=== PATIENT | male | born 1980 | race Caucasian/White ===

== ENCOUNTER 2021-12-20 16:30 | Emergency (ER) | payer OTHER, SELFPAY ==
[2021-12-20 16:42] VITALS: BP 140/108; PULSE 106; RESP 18; TEMP 36.7; O2SAT 96
--- NOTE | 2021-12-20 16:45 | PC.NURSE ---
1:[address]
--- NOTE | 2021-12-20 16:54 | HMH.EDPSYCH ---
ED Disposition Condition on Discharge: Fair - Critical Care Critical Care Time: No <Leobardo Russell - Last Filed: 12/20/21 20:04> <Elie Solo - Last Filed: 12/21/21 04:34> Clinical Impression: Suicidal ideation Disposition: Xfer [facility] Referrals: Provider,Referral, [Primary Care Provider] - Attestation: On 12/20/21, the high probability of a clinically significant, sudden or life threatening deterioration of the following system(s) required my full and direct attention, intervention and personal management. The time I documented below is in addition to time spent performing reported procedures but includes the following listed in this critical care notation. Medical Decision Making - Medical Records Medical records reviewed: Yes: I reviewed the patient's medical records. - Janes Inquiry Pt receiving controlled substance: No - Lab Data Result diagrams: 12/20/21 17:17 12/20/21 17:17 - Reevaluation(s) Time: 20:01 (Discussed with [facility] for transfer and they request EtOH <80 before evaluation. By typical clearance rate, expect this will be around 0400. Will sign over to material handler 1st shift physician. ) <Leobardo Russell - Last Filed: 12/20/21 20:04> - Lab Data Result diagrams: 12/20/21 17:17 12/20/21 17:17 <Elie Solo - Last Filed: 12/21/21 04:34> Vital Signs: 12/20/21 16:42 12/20/21 17:30 12/20/21 18:30 Temperature 98.1 F Temperature Source Oral Pulse Rate 83 89 Pulse Rate [Left Radial] 106 H Respiratory Rate 18 16 16 Blood Pressure 135/94 H 138/92 H Blood Pressure [Right Arm] 140/108 H Blood Pressure Mean 105 Blood Pressure Mean [Right Arm] 118 02 Sat by Pulse Oximetry 96 97 96 Oxygen Delivery Method Room Air Room Air 12/20/21 23:30 12/21/21 00:00 12/21/21 00:30 Temperature Temperature Source Pulse Rate 79 78 80 Pulse Rate [Left Radial] Respiratory Rate Blood Pressure 132/87 134/94 H 128/90 Blood Pressure [Right Arm] Blood Pressure Mean 98 Blood Pressure Mean [Right Arm] 02 Sat by Pulse Oximetry 97 97 95 Oxygen Delivery Method Room Air Room Air Room Air 12/21/21 01:00 12/21/21 01:30 12/21/21 02:00 Temperature Temperature Source Pulse Rate 71 94 H 76 Pulse Rate [Left Radial] Respiratory Rate Blood Pressure 132/94 H 130/94 H 125/84 Blood Pressure [Right Arm] Blood Pressure Mean Blood Pressure Mean [Right Arm] 02 Sat by Pulse Oximetry 95 95 94 L Oxygen Delivery Method Room Air Room Air Room Air 12/21/21 02:30 12/21/21 03:00 12/21/21 03:30 Temperature Temperature Source Pulse Rate 85 75 78 Pulse Rate [Left Radial] Respiratory Rate 17 18 Blood Pressure 136/97 H 129/89 129/87 Blood Pressure [Right Arm] Blood Pressure Mean 100 95 Blood Pressure Mean [Right Arm] 02 Sat by Pulse Oximetry 96 95 95 Oxygen Delivery Method Room Air Room Air Room Air - Lab Data Lab Results 12/20/21 16:52: SARS-CoV-2 (PCR) Not detected, Influenza A Untype (PCR) Not detected, Influenza Type B (PCR) Not detected 12/20/21 17:17: WBC 5.3, RBC 4.84, Hgb 16.0, Hct 49.3, MCV 101.8 H, MCH 33.1 H, MCHC 32.5, RDW 13.7, Plt Count 312, MPV 7.5, Neut % (Auto) 43.8, Lymph % (Auto) 44.3, Lucas % (Auto) 6.4, Eos % (Auto) 3.7, Baso % (Auto) 1.8, Neut # (Auto) 2.3, Lymph # (Auto) 2.4, [place] # (Auto) 0.3, Eos # (Auto) 0.2, Baso # (Auto) 0.1 12/20/21 17:17: Sodium 146 H, Potassium 4.0, Chloride 111 H, Carbon Dioxide 23, Anion Gap 16.0 H, BUN 4 L, Creatinine 0.80, Estimated Creat Clear 122, Estimated GFR 106, Est GFR ( Amer) 128, Glucose 111 H, Calcium 9.2, Total Bilirubin 0.3, AST 39, ALT 22, Alkaline Phosphatase 73, Total Protein 8.2, Albumin 5.0, Globulin 3.2, Albumin/Globulin Ratio 1.6, TSH 1.06, Salicylates < 1.0 L, Acetaminophen < 10 L 07/14/22 17:17: Plasma/Serum Alcohol 316 H 12/20/21 18:51: Urine Opiates Screen Negative, Urine Methadone Screen Negative, Ur Barbituates Screen Negative, Ur Phencyclidine
--- NOTE | 2021-12-20 17:15 | ECG_ITS ---
APPROVED REPORT Exam: Resting ECG HR:80 bpm ECG Measurements Heart Rate 80 AXES [place] 149 P 81 QRSd 97 QRS 83 QT 344 T 70 QTc 380 Conclusion SINUS RHYTHM WITH SINUS ARRHYTHMIA NORMAL ECG UNCONFIRMED REPORT Electronically signed by : Brain Daniel MD 12/23/2021 16:29:51
--- NOTE | 2021-12-20 17:21 | PC.NURSE ---
PD remains at the bedside. spoke to [facility], states they can not take the patient unless alcohol is 0.08 or below. blood and covid swab obtained and sent to the lab. urinal at the bedside for sample. pt states he will provide a sample when he can
[2021-12-20 17:24] LABS: Coronavirus 19, PCR Not Detected (NotDetected); Influenza A, PCR Not Detected (NotDetected); Influenza B, PCR Not Detected (NotDetected)
[2021-12-20 17:28] LABS: Basophils # 0.1 K/mm3 (0-0.2); Basophils % 1.8 % (0.1-2.0); Eosinophils # 0.2 K/mm3 (0.0-0.4); Eosinophils % 3.7 % (0.1-12.0); Hematocrit 49.3 % (42.0-52.0); Lymphocytes # 2.4 K/mm3 (0.7-4.5); Lymphocytes % 44.3 % (10-50); Mean Corpuscular HGB Conc 32.5 g/dL (31.8-35.4); Mean Corpuscular Hemoglobin 33.1 pg (27.0-31.2); Mean Corpuscular Volume 101.8 fl (80-94); Mean Platelet Volume 7.5 fl (7.4-10.4); Monocytes # 0.3 K/mm3 (0.1-1.0); Monocytes % 6.4 % (1.7-9.3); Neutrophils # 2.3 K/mm3 (1.8-7.8); Neutrophils % 43.8 % (37.0-80.0); Platelet Count 312 K/mm3 (142-424); Red Blood Count 4.84 M/mm3 (4.60-6.20); Red Cell Distribution Width 13.7 % (11.5-17.5); White Blood Count 5.3 K/mm3 (4.8-10.8)
[2021-12-20 17:30] VITALS: BP 135/94; PULSE 83; RESP 16; O2SAT 97
[2021-12-20 17:31] LABS: Chloride 111 mmol/L (98-107)
[2021-12-20 17:32] LABS: Sodium 146 mmol/L (136-145)
[2021-12-20 17:34] LABS: Alanine Aminotransferase 22 U/L (12-78); Alkaline Phosphatase 73 U/L (38-126); Aspartate Amino Transferase 39 U/L (17-59); Bilirubin,Total 0.3 mg/dl (0.2-1.3); Blood Urea Nitrogen 4 mg/dl (9-20); Creatinine Clearance Estimated 122 mL/min (50-200); Estimated Glomerular Filt Rate 106 ml/min (>60); GFR (African American) 128 ML/MIN (>60)
[2021-12-20 17:35] LABS: Albumin/Globulin Ratio 1.6 (1.1-1.8); Carbon Dioxide 23 mmol/L (22.0-30.0); Globulin 3.2 g/dL (1.3-3.2); Total Protein,Serum 8.2 g/dl (6.3-8.2)
[2021-12-20 17:40] LABS: Calcium 9.2 mg/dl (8.4-10.2); Glucose 111 mg/dl (74-100)
[2021-12-20 17:43] LABS: Acetaminophen < 10 ug/ml (10-30); Salicylate < 1.0 mg/dL (2.0-20.0)
[2021-12-20 17:44] LABS: Ethyl Alcohol 316 mg/dl (0-10)
--- NOTE | 2021-12-20 17:55 | PC.NURSE ---
spoke with the girlfriend of the pt and with pt permission, updated on POC.
[2021-12-20 18:06] LABS: Thyroid Stimulating Hormone 1.06 uIU/mL (0.465-4.68)
--- NOTE | 2021-12-20 18:28 | PC.NURSE ---
police custody everything was ok
[2021-12-20 18:30] VITALS: BP 138/92; PULSE 89; RESP 16; O2SAT 96
--- NOTE | 2021-12-20 18:47 | PC.NURSE ---
pt resting comfortably. pd remains at bedside. ordered and offered dinner tray. pt does not want to eat. tray at the bedside.
--- NOTE | 2021-12-20 18:53 | PC.NURSE ---
pt provided urine sample at this time
[2021-12-20 19:10] LABS: Barbiturates Screen,Urine Negative ng/ml (<200); Benzodiazepines Screen,Urine Negative ng/ml (<200)
[2021-12-20 19:11] LABS: Amphetamine/Metha Screen,Urine Negative ng/ml (<1000)
[2021-12-20 19:12] LABS: Cannabinoid Screen,Urine Positive ng/ml (<50); Methadone Screen,Urine Negative ng/ml (<300)
[2021-12-20 19:13] LABS: Cocaine Screen,Urine Negative ng/ml (<300)
[2021-12-20 19:14] LABS: Opiate Screen,Urine Negative ng/ml (<300); Phencyclidine Screen,Urine Negative ng/ml (<25)
--- NOTE | 2021-12-20 20:52 | PC.NURSE ---
PATIENT SITTING UP ON SIDE OF BED TALKING WITH PSYCH ASSISTANT. NO NEEDS VOICED AT THIS TIME.
--- NOTE | 2021-12-20 21:35 | PC.NURSE ---
pt's SO called for an update, gave update on pts condition.
--- NOTE | 2021-12-20 21:39 | PC.NURSE ---
PATIENT IS LYING IN BED WITH EYES CLOSED. WARM BLANKET APPLIED. NO NEEDS VOICED.
[2021-12-20 22:55] LABS: Ethyl Alcohol 228 mg/dl (0-10)
--- NOTE | 2021-12-20 23:25 | PC.NURSE ---
PATIENT ALLOWING BP TO BE TAKEN. PATIENT RESTING IN BED. NO COMPLAINTS VOICED. PATIENT BEING COOPERATIVE AT THIS TIME.
[2021-12-20 23:30] VITALS: BP 132/87; PULSE 79; O2SAT 97
[2021-12-21] VITALS (10 sets, daily range): BP systolic 125–136; BP diastolic 75–97; PULSE 70–94; RESP 17–18; TEMP 36.7; O2SAT 94–98
--- NOTE | 2021-12-21 01:00 | PC.NURSE ---
drawing lab for repeat Alcohol level at this time. Pt resting in bed. He has ate some from crackers and drinking ugo mist. Denies any pain at this time.
[2021-12-21 01:27] LABS: Ethyl Alcohol 153 mg/dl (0-10)
--- NOTE | 2021-12-21 03:05 | PC.NURSE ---
PD changing officers at this time.
--- NOTE | 2021-12-21 03:44 | PC.NURSE ---
pt's SO called, given update on POC and labs.
[2021-12-21 04:08] LABS: Ethyl Alcohol 97 mg/dl (0-10)
== END 2021-12-21 04:45 ==
PROVIDERS: Emergency Provider Emergency Medicine
DX: R45.851 Suicidal ideations (principal); Z72.89 Other problems related to lifestyle
CPT/HCPCS: 80053; 80305; 80329; 84443; 85025; 93005; 99283; C9803; U0003; U0005

== ENCOUNTER 2023-08-05 19:24 | Emergency (ER) | payer OTHER, SELFPAY ==
[2023-08-05 19:24] VITALS: BP 120/89; PULSE 108; RESP 18; TEMP 37.1; O2SAT 98; BMI 21.9
--- NOTE | 2023-08-05 19:26 | ECG_ITS ---
APPROVED REPORT Exam: Resting ECG HR:73 bpm ECG Measurements Heart Rate 73 AXES [place] 127 P 86 QRSd 93 QRS 93 QT 342 T 71 QTc 368 Conclusion SINUS RHYTHM WITH SINUS ARRHYTHMIA BORDERLINE RIGHT AXIS DEVIATION [QRS AXIS > 90] BORDERLINE ECG UNCONFIRMED REPORT Electronically signed by : Brain Daniel MD 08/06/2023 10:05:05
--- NOTE | 2023-08-05 19:27 | HMH.EDCP ---
Discharge Plan Disposition Patient Disposition: Home, Self-Care Condition: Good Prescriptions Prescriptions: New albuterol sulfate 90 mcg/actuation HFA aerosol inhaler 2 inh inhalation Q4H PRN (Reason: shortness of breath or wheezing) Qty: 8.5 0RF Referrals Follow up/Referrals: Christian Pendleton DO [Staff Physician] - See instructions Provider,MD Carlos [Primary Care Provider] - See instructions Ian Ospina MD [Staff Physician] - See instructions Activity Restrictions/Add. Instructions Additional Instructions/Restrictions: Please continue to treat your symptoms with Tylenol and Motrin alternating every 4 hours. I have made a referral for you for primary care and cardiology. Please call in the morning and make a initial appointment. Please return to the emergency department for any worsening or new symptoms or as needed. Clinical Impressions Clinical Impression: Influenza A Chest pain Qualifiers: Chest pain type: unspecified Qualified Code(s): R07.9 - Chest pain, unspecified Stand Alone Forms Stand Alone Forms: Work/School Release Discharge ED Provider: Debora Tipton HPI <DAPHNIE De Jesus - Last Filed: 08/05/23 22:05> General Chief Complaint: Chest Pain Stated Complaint: chest pain Time Seen by Provider: 08/05/23 19:27 History of Present Illness HPI narrative: Patient presents with reports of subjective fever, nausea dry nonproductive cough and nonradiating left-sided chest pain. Patient has past medical history of former alcohol abuse but has been sober for quite some time. Patient also reports that he has a son that was diagnosed with Marfan's and had heart surgery at but has never been worked up for Marfan's himself. Patient currently denies chills hemoptysis hematochezia melena hematemesis hematuria. Related Data Previous Rx's Medication Instructions Recorded albuterol sulfate 90 mcg/actuation 2 inh inhalation Q4H PRN shortness 08/05/23 aerosol inhaler of breath or wheezing #8.5 grams Allergies Allergy/AdvReac Type Severity Reaction Status Date / Time No Known Allergies Allergy Verified 12/20/21 17:12 [facility] <DAPHNIE De Jesus - Last Filed: 08/05/23 22:05> [facility] Disclaimer: The information contained in this section may have been updated after the patient was seen, as this information can be updated by other users. Social History (Updated 08/05/23 @ 22:05 by DAPHNIE De Jesus) Smoking Status: Never smoker alcohol intake: former current occupational status: employed Travel in the last 8 weeks: None <DAPHNIE De Jesus - Last Filed: 08/05/23 22:05> ROS Obtained: Yes Systems reviewed as appropriate & no additional complaints except as documented Physical Exam <DAPHNIE De Jesus - Last Filed: 08/05/23 22:05> Narrative Physical exam: Patient is a tall thin well-nourished well-developed 43-year-old gentleman who otherwise is in no acute distress General General appearance: alert and in no apparent distress Head Head exam: atraumatic and normal inspection Eye Eye exam: Present normal appearance, PERRL and EOMI ENT ENT exam: Present normal exam, normal oropharynx, mucous membranes moist and other (No exudate) Neck Neck exam: Present normal inspection, full ROM and trachea midline; Absent lymphadenopathy Chest Chest inspection: Present normal inspection and symmetric chest wall rise; Absent tenderness (To palpation or deep breath) Respiratory Respiratory exam: Present normal lung sounds bilaterally; Absent respiratory distress, wheezes or accessory muscle use Cardiovascular Cardiovascular exam: Present regular rate, tachycardia, normal heart sounds, +S1 and +S2; Absent systolic murmur, diastolic murmur, rubs or gallop Abdominal Exam Abdominal exam: Present soft and normal bowel sounds; Absent tenderness, guarding or rebound Extremities Exam Extremities exam: Present normal inspection and full ROM Back Exam Back exam: Present normal inspection and full ROM; Absent tenderness Neurological Exam Neurological exam: Present alert and oriented X3 Psychiatric Psychiatric exam: Present normal affect and normal mood Skin Skin exam: Present warm, dry and normal color HEART Score <DAPHNIE De Jesus - Last Filed: 08/05/23 22:05> HEART Score HEART Score assessment performed?: Yes History (anamnesis): Slightly suspicious ECG: Normal Age: 45-65 years Risk factors: 1-2 risk factors Troponin: </= normal limit HEART Score: 2 <Debora Tipton DO - Last Filed: 08/05/23 22:57> HEART Score HEART Score: 2 Critical Care <DAPHNIE De Jesus - Last Filed: 08/05/23 22:05> Critical Care Time Critical Care Time: Yes Attestation: On 08/05/23, the high probability of a clinically significant, sudden or life threatening deterioration of the following system(s) required my full and direct attention, intervention and personal management: Cardiac and pulmonary. The time I documented below is in addition to time spent performing reported procedures but includes the following listed in this critical care notation. Total Time Total Critical Care Time: 30 Medical Decision Making <DAPHNIE De Jesus - Last Filed: 08/05/23 22:05> Medical Records Medical records reviewed: Yes I reviewed the patient's medical records. Janes Inquiry Pt receiving controlled substance: No Vital Signs Vital Signs: 08/05/23 19:24 08/05/23 20:00 08/05/23 20:30 Temperature 98.7 F Temperature Source Oral Pulse Rate 106 H 73 Pulse Rate [Right Brachial] 108 H Respiratory Rate 18 Blood Pressure 105/81 L 110/72 Blood Pressure [Right Arm] 120/89 Blood Pressure Mean [Right Arm] 99 Blood Pressure Source [Right Arm] Automatic Cuff Blood Pressure Position [Right Arm] Supine 02 Sat by Pulse Oximetry 98 96 95 Oxygen Delivery Method Room Air 08/05/23 21:00 08/05/23 22:12 Temperature 98.4 F Temperature Source Oral Pulse Rate 104 H 82 Pulse Rate [Right Brachial] Respiratory Rate 16 Blood Pressure 97/74 L 96/62 L Blood Pressure [Right Arm] Blood Pressure Mean [Right Arm] Blood Pressure Source [Right Arm] Blood Pressure Position [Right Arm] 02 Sat by Pulse Oximetry 96 Oxygen Delivery Method Room Air Lab Data Lab results reviewed: Yes I reviewed the patient's lab results. Labs: Lab Results 08/05/23 19:26: WBC 3.8 L, RBC 4.31 L, Hgb 13.6 L, Hct 41.1 L, MCV 95.5 H, MCH 31.5 H, MCHC 33.0, RDW 12.8, Plt Count 158, MPV 8.7, Neut % (Auto) 50.9, Lymph % (Auto) 38.5, [place] % (Auto) 9.3, Eos % (Auto) 0.9, Baso % (Auto) 0.3, Neut # (Auto) 1.9, Lymph # (Auto) 1.5, [place] # (Auto) 0.4, Eos # (Auto) 0.0, Baso # (Auto) 0.0, Sodium 140, Potassium 4.0, Chloride 108 H, Carbon Dioxide 22, Anion Gap 14.0, BUN 11, Creatinine 1.00, Estimated Creat Clear 105, Estimated GFR 81, Est GFR ( Amer) 98, Glucose 97, Lactate 1.0, Calcium 8.9, Total Bilirubin 0.3, AST 37, ALT 31, Alkaline Phosphatase 68, Troponin I < 0.01, Total Protein 7.1, Albumin 4.2, Globulin 2.9, Albumin/Globulin Ratio 1.4, SARS-CoV-2 (PCR) Not detected, Influenza A Untype (PCR) Detected A, Influenza Type B (PCR) Not detected 08/05/23 19:26 08/05/23 19:26 Response Orders (Tests/Meds): ED MEDICATIONS Discontinued Medications Generic Name Dose Route Start Last Admin Trade Name Freq PRN Reason Stop Dose Admin Acetaminophen 1,000 mg 08/05/23 20:15 08/05/23 20:19 Acetaminophen 500mg Tab PO 08/05/23 20:16 1,000 mg ONCE ONE Administration Albuterol/Ipratropium 3 ml 08/05/23 20:26 08/05/23 20:42 Ipratropium/Albuterol 3 Ml Neb IH 08/05/23 20:27 3 ml ONCE ONE Administration Belladonna Alkaloids 60 ml 08/05/23 20:15 08/05/23 20:19 Belladonna Alkaloids 60 Ml Ml PO 08/05/23 20:16 60 ml ONCE ONE Administration Dexamethasone Sodium Phosphate 4 mg 08/05/23 20:26 08/05/23 20:51 Dexamethasone 4mg/Ml 1ml Vial IV 08/05/23 20:27 4 mg ONCE ONE Administration Lactated Ringer's 1,000 mls @ 999 mls/hr 08/05/23 21:42 08/05/23 21:48 Lactated Ringer's 1000 Ml Bag IV 08/05/23 22:42 999 mls/hr .Q1H1M ONE Administration Ketorolac Tromethamine 15 mg 08/05/23 20:15 08/05/23 20:19 Ketorolac 30mg/Ml Vial IV 08/05/23 20:16 15 mg ONCE ONE Administration ORDERS Category Date Time Status XR chest portable Stat Exams 08/05/23 20:14 Completed Complete Blood Count Auto Diff Stat Lab 08/05/23 19:26 Completed Comprehensive Metabolic Panel Stat Lab 08/05/23 19:26 Completed Lactic Acid Stat Lab 08/05/23 19:26 Completed Rapid PCR Covid and Flu A/B Stat Lab 08/05/23 19:26 Completed Troponin I Stat Lab 08/05/23 19:26 Completed MDM Narrative Medical Decision Narrative: In summary patient is a 43-year-old male who presents to the emergency department for evaluation of cough fever chest pain. Patient is initially normotensive with stable vital signs upon arrival, and afebrile. Physical exam shows a nontoxic 43-year-old male who appears to be unwell slightly diaphoretic. Chest pain is nonspecific and does not radiate. Breath sounds are equal bilaterally with no adventitious sounds.. Differential diagnosis includes ACS versus PE versus viral or bacterial pneumonia versus dissection. Initial workup will be conducted with hematologic labs plain film chest x-ray respiratory swabs. Initial interventions include crystalloid bolus Tylenol Toradol DuoNeb Decadron. Initial workup reviewed by me shows a normal white count with no left shift, patient is positive for influenza A. Initial troponin is negative. EKG shows sinus tachycardia. Informal interpretation of his plain film chest x-ray shows no acute disease. Upon repeat evaluation has had complete resolution of his constitutional symptoms including his chest pain after administration of DuoNeb Decadron Tylenol and Toradol. Given this she is appropriate for discharge at this time with recommendations and referrals for primary care. Patient advised to return to the ER for any worsening symptoms or as needed. Discharge and decision making patient verbalized understanding and agreement with the plan. <Debora Tipton, DO - Last Filed: 08/05/23 22:57> Vital Signs Vital Signs: 08/05/23 19:24 08/05/23 20:00 08/05/23 20:30 Temperature 98.7 F Temperature Source Oral Pulse Rate 106 H 73 Pulse Rate [Right Brachial] 108 H Respiratory Rate 18 Blood Pressure 105/81 L 110/72 Blood Pressure [Right Arm] 120/89 Blood Pressure Mean [Right Arm] 99 Blood Pressure Source [Right Arm] Automatic Cuff Blood Pressure Position [Right Arm] Supine 02 Sat by Pulse Oximetry 98 96 95 Oxygen Delivery Method Room Air 08/05/23 21:00 08/05/23 22:12 Temperature 98.4 F Temperature Source Oral Pulse Rate 104 H 82 Pulse Rate [Right Brachial] Respiratory Rate 16 Blood Pressure 97/74 L 96/62 L Blood Pressure [Right Arm] Blood Pressure Mean [Right Arm] Blood Pressure Source [Right Arm] Blood Pressure Position [Right Arm] 02 Sat by Pulse Oximetry 96 Oxygen Delivery Method Room Air Lab Data Labs: Lab Results 08/05/23 19:26: WBC 3.8 L, RBC 4.31 L, Hgb 13.6 L, Hct 41.1 L, MCV 95.5 H, MCH 31.5 H, MCHC 33.0, RDW 12.8, Plt Count 158, MPV 8.7, Neut % (Auto) 50.9, Lymph % (Auto) 38.5, [place] % (Auto) 9.3, Eos % (Auto) 0.9, Baso % (Auto) 0.3, Neut # (Auto) 1.9, Lymph # (Auto) 1.5, [place] # (Auto) 0.4, Eos # (Auto) 0.0, Baso # (Auto) 0.0, Sodium 140, Potassium 4.0, Chloride 108 H, Carbon Dioxide 22, Anion Gap 14.0, BUN 11, Creatinine 1.00, Estimated Creat Clear 105, Estimated GFR 81, Est GFR ( Amer) 98, Glucose 97, Lactate 1.0, Calcium 8.9, Total Bilirubin 0.3, AST 37, ALT 31, Alkaline Phosphatase 68, Troponin I < 0.01, Total Protein 7.1, Albumin 4.2, Globulin 2.9, Albumin/Globulin Ratio 1.4, SARS-CoV-2 (PCR) Not detected, Influenza A Untype (PCR) Detected A, Influenza Type B (PCR) Not detected Response Orders (Tests/Meds): ED MEDICATIONS Discontinued Medications Generic Name Dose Route Start Last Admin Trade Name Freq PRN Reason Stop Dose Admin Acetaminophen 1,000 mg 08/05/23 20:15 08/05/23 20:19 Acetaminophen 500mg Tab PO 08/05/23 20:16 1,000 mg ONCE ONE Administration Albuterol/Ipratropium 3 ml 08/05/23 20:26 08/05/23 20:42 Ipratropium/Albuterol 3 Ml Neb IH 08/05/23 20:27 3 ml ONCE ONE Administration Belladonna Alkaloids 60 ml 08/05/23 20:15 08/05/23 20:19 Belladonna Alkaloids 60 Ml Ml PO 08/05/23 20:16 60 ml ONCE ONE Administration Dexamethasone Sodium Phosphate 4 mg 08/05/23 20:26 08/05/23 20:51 Dexamethasone 4mg/Ml 1ml Vial IV 08/05/23 20:27 4 mg ONCE ONE Administration Lactated Ringer's 1,000 mls @ 999 mls/hr 08/05/23 21:42 08/05/23 21:48 Lactated Ringer's 1000 Ml Bag IV 08/05/23 22:42 999 mls/hr .Q1H1M ONE Administration Ketorolac Tromethamine 15 mg 08/05/23 20:15 08/05/23 20:19 Ketorolac 30mg/Ml Vial IV 08/05/23 20:16 15 mg ONCE ONE Administration ORDERS Category Date Time Status XR chest portable Stat Exams 08/05/23 20:14 Completed Complete Blood Count Auto Diff Stat Lab 08/05/23 19:26 Completed Comprehensive Metabolic Panel Stat Lab 08/05/23 19:26 Completed Lactic Acid Stat Lab 08/05/23 19:26 Completed Rapid PCR Covid and Flu A/B Stat Lab 08/05/23 19:26 Completed Troponin I Stat Lab 08/05/23 19:26 Completed ECG Data Tracing #1: Attestation: I reviewed this ECG and interpreted as documented below: ECG Narrative: Normal sinus rhythm with a ventricular rate of [address] changes concerning for ischemia. Normal axis and intervals. ECG initial impression date: 08/05/23 ECG initial impression time: 19:27 MDM Narrative Medical Decision Narrative: In summary patient is a 43-year-old male who presents to the emergency department for evaluation of cough fever chest pain. Patient is initially normotensive with stable vital signs upon arrival, and afebrile. Physical exam shows a nontoxic 43-year-old male who appears to be unwell slightly diaphoretic. Chest pain is nonspecific and does not radiate. Breath sounds are equal bilaterally with no adventitious sounds.. Differential diagnosis includes ACS versus PE versus viral or bacterial pneumonia versus dissection. Initial workup will be conducted with hematologic labs plain film chest x-ray respiratory swabs. Initial interventions include crystalloid bolus Tylenol Toradol DuoNeb Decadron. Initial workup reviewed by me shows a normal white count with no left shift, patient is positive for influenza A. Initial troponin is negative. EKG shows sinus tachycardia. Informal interpretation of his plain film chest x-ray shows no acute disease. Upon repeat evaluation has had complete resolution of his constitutional symptoms including his chest pain after administration of DuoNeb Decadron Tylenol and Toradol. Given this she is appropriate for discharge at this time with recommendations and referrals for primary care. Patient advised to return to the ER for any worsening symptoms or as needed. Discharge and decision making patient verbalized understanding and agreement with the plan. I was consulted by the NARCISO, and we discussed the complexity of the problems being addressed. I approved the treatment and management plan for this patient's care in the emergency department, thus performing a substantive portion of the medical decision making. Debora Tipton, DO
[2023-08-05 20:00] VITALS: BP 105/81; PULSE 106; O2SAT 96
--- NOTE | 2023-08-05 20:14 | XR_ITS ---
PROCEDURE INFORMATION: Exam: XR Chest Exam date and time: 08/05/2023 8:16 PM Age: 43 years old Clinical indication: Pain; Chest pressure; Additional info: Chest pain TECHNIQUE: Imaging protocol: Radiologic exam of the chest. Views: 1 view. COMPARISON: No relevant prior studies available. FINDINGS: Lungs: Unremarkable. No consolidation. Pleural spaces: Unremarkable. No pleural effusion. No pneumothorax. Heart/Mediastinum: Unremarkable. No cardiomegaly. Bones/joints: Unremarkable. IMPRESSION: No acute findings.
[2023-08-05] MEDS: BELLADONNA ALKALOIDS 60 ML ML PO (20:19)
[2023-08-05] MEDS: ACETAMINOPHEN 500MG TAB 1000 MG PO (20:19)
[2023-08-05] MEDS: KETOROLAC 30MG/ML VIAL 15 MG IV (20:19)
[2023-08-05 20:24] LABS: Basophils % 0.3 % (0.1-2.0); Eosinophils % 0.9 % (0.1-12.0); Hematocrit 41.1 % (42.0-52.0); Hemoglobin 13.6 g/dL (14.1-18.0); Lymphocytes # 1.5 K/mm3 (0.7-4.5); Lymphocytes % 38.5 % (10-50); Mean Corpuscular Hemoglobin 31.5 pg (27.0-31.2); Mean Corpuscular Volume 95.5 fl (80-94); Mean Platelet Volume 8.7 fl (7.4-10.4); Monocytes # 0.4 K/mm3 (0.1-1.0); Monocytes % 9.3 % (1.7-9.3); Neutrophils # 1.9 K/mm3 (1.8-7.8); Neutrophils % 50.9 % (37.0-80.0); Platelet Count 158 K/mm3 (142-424); Red Blood Count 4.31 M/mm3 (4.60-6.20); Red Cell Distribution Width 12.8 % (11.5-17.5); White Blood Count 3.8 K/mm3 (4.8-10.8)
[2023-08-05 20:30] VITALS: BP 110/72; PULSE 73; O2SAT 95
[2023-08-05 20:30] LABS: Alanine Aminotransferase 31 U/L (12-78); Albumin Level 4.2 g/dl (3.5-5.0); Albumin/Globulin Ratio 1.4 (1.1-1.8); Alkaline Phosphatase 68 U/L (38-126); Aspartate Amino Transferase 37 U/L (17-59); Bilirubin,Total 0.3 mg/dl (0.2-1.3); Blood Urea Nitrogen 11 mg/dl (9-20); Calcium 8.9 mg/dl (8.4-10.2); Carbon Dioxide 22 mmol/L (22.0-30.0); Chloride 108 mmol/L (98-107); Creatinine Clearance Estimated 105 mL/min (50-200); Estimated Glomerular Filt Rate 81 ml/min (>60); GFR (African American) 98 ML/MIN (>60); Globulin 2.9 g/dL (1.3-3.2); Glucose 97 mg/dl (74-100); Sodium 140 mmol/L (136-145); Total Protein,Serum 7.1 g/dl (6.3-8.2)
[2023-08-05 20:33] LABS: Coronavirus 19, PCR Not Detected (NotDetected); Influenza B, PCR Not Detected (NotDetected)
[2023-08-05 20:42] LABS: Troponin I < 0.01 ng/ml (0.00-0.034)
[2023-08-05] MEDS: IPRATROPIUM/ALBUTEROL 3 ML NEB IH (20:42)
[2023-08-05] MEDS: DEXAMETHASONE 4MG/ML 1ML VIAL 4 MG IV (20:51)
[2023-08-05 21:00] VITALS: BP 97/74; PULSE 104; O2SAT 96
[2023-08-05 21:35] LABS: Influenza A, PCR Detected (NotDetected)
[2023-08-05] MEDS: LACTATED RINGERS 1000ML 1,000 ML 999 ML IV (21:48)
[2023-08-05 22:12] VITALS: BP 96/62; PULSE 82; RESP 16; TEMP 36.9; O2SAT 96
== END 2023-08-05 22:28 | disposition home or self-care (01) ==
PROVIDERS: Physician Assistant; Emergency Provider Emergency Medicine
DX: J10.1 Influenza due to other identified influenza virus with other respiratory manifestations (principal); R07.9 Chest pain, unspecified; R05.9 Cough, unspecified; R00.0 Tachycardia, unspecified
CPT/HCPCS: 71045; 80053; 83605; 84484; 85025; 87636; 93005; 96361; 96374; 96375; 99285

== ENCOUNTER 2023-08-18 14:34 | Outpatient (CLI) | payer OTHER, SELFPAY ==
[2023-08-18 15:27] LABS: Basophils # 0.1 K/mm3 (0-0.2); Basophils % 0.6 % (0.1-2.0); Eosinophils # 0.2 K/mm3 (0.0-0.4); Eosinophils % 2.3 % (0.1-12.0); Hematocrit 40.2 % (42.0-52.0); Hemoglobin 13.5 g/dL (14.1-18.0); Lymphocytes # 1.4 K/mm3 (0.7-4.5); Lymphocytes % 15.1 % (10-50); Mean Corpuscular HGB Conc 33.6 g/dL (31.8-35.4); Mean Corpuscular Hemoglobin 31.9 pg (27.0-31.2); Mean Corpuscular Volume 94.9 fl (80-94); Mean Platelet Volume 8.5 fl (7.4-10.4); Monocytes # 0.5 K/mm3 (0.1-1.0); Monocytes % 5.4 % (1.7-9.3); Neutrophils # 6.9 K/mm3 (1.8-7.8); Neutrophils % 76.7 % (37.0-80.0); Platelet Count 251 K/mm3 (142-424); Red Blood Count 4.24 M/mm3 (4.60-6.20); Red Cell Distribution Width 13.1 % (11.5-17.5)
[2023-08-18 16:01] LABS: Alanine Aminotransferase 23 U/L (12-78); Albumin Level 4.3 g/dl (3.5-5.0); Alkaline Phosphatase 64 U/L (38-126); Anion Gap 10.1 mEq/L (5-15); Aspartate Amino Transferase 29 U/L (17-59); Bilirubin,Indirect 0.8 mg/dL (0.0-0.9); Bilirubin,Total 0.8 mg/dl (0.2-1.3); Bilirubin,Unconjugated 0.8 mg/dL (0.0-1.1); Blood Urea Nitrogen 16 mg/dl (9-20); Calcium 9.1 mg/dl (8.4-10.2); Carbon Dioxide 28 mmol/L (22.0-30.0); Chloride 107 mmol/L (98-107); Chol/HDL Ratio 3.4 (1-3.5); Cholesterol 151 mg/dl (140-200); Estimated Glomerular Filt Rate 91 ml/min (>60); GFR (African American) 110 ML/MIN (>60); Glucose 95 mg/dl (74-100); HDL Cholesterol 44 mg/dl (40-60); Magnesium 2.3 mg/dl (1.6-2.3); Potassium 4.1 mmoL/L (3.5-5.1); Sodium 141 mmol/L (136-145); Total Protein,Serum 6.6 g/dl (6.3-8.2); Triglycerides 40 mg/dl (30-150); VLDL Cholesterol 8 mg/dL (0-40)
[2023-08-18 16:12] LABS: Direct LDL Cholesterol 82.33 mg/dL (100-129)
[2023-08-18 16:19] LABS: Free T4 (Free Thyroxine) 1.27 ng/dl (0.78-2.19)
[2023-08-18 16:34] LABS: Thyroid Stimulating Hormone 0.64 uIU/mL (0.465-4.68)
== END 2023-08-18 23:59 ==
LOC: LAB 14:35
PROVIDERS: Visit Provider Nurse Practitioner Family
DX: R00.2 Palpitations (principal); R06.00 Dyspnea, unspecified; R94.31 Abnormal electrocardiogram [ECG] [EKG]; R07.9 Chest pain, unspecified; R42 Dizziness and giddiness; R53.83 Other fatigue; F41.9 Anxiety disorder, unspecified; F10.91 Alcohol use, unspecified, in remission; Z78.9 Other specified health status
CPT/HCPCS: 36415; 80048; 80061; 80076; 83735; 84439; 84443; 85025; 93270

== ENCOUNTER 2023-09-01 09:02 | Outpatient (CLI) | payer OTHER, SELFPAY ==
[2023-09-01] VITALS (8 sets, daily range): BP systolic 88–111; BP diastolic 49–80; PULSE 50–80; RESP 16–18; O2SAT 98–100; BMI 21.2
--- NOTE | 2023-09-01 09:03 | CT_ITS ---
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 A noncontrast coronary calcium scan was performed. A CT attenuation threshold of 130 Hounsfield units (HU) was used for the detection of calcium in contiguous voxels of 1 sq mm in area to be counted as individual lesions. Bolus tracking in the ascending aorta with a threshold of 180 HU was performed. Immediately afterwards, ECG synchronized cardiac CT was then performed from the cardiac base to apex using retrospective gating with ECG tube current modulation. A total of 85 mL of Isovue 370 mg/mL contrast medium was administered at 5 mL/sec followed by a saline flush using a biphasic injection protocol. A tube voltage of 120 KVp was used. The patient received the following medications prior to the cardiac CT. 75 mg of oral metoprolol 15 mg of oral ivabradine 0.4 mg of sublingual nitroglycerin The average heart rate at the time of acquisition was 54 bpm and regular. Image Reconstruction Transaxial images were reconstructed at 0.67 mm slide thickness. Data was reviewed interactively on an advanced workstation capable of 2 and 3-dimensional displays in all conventional reconstruction formats, including multiplanar reformations, maximum intensity projections, curved multiplanar reformations, and volume rendered reconstructions. When applicable, selected routine images describing the relevant coronary anatomy and pathology were saved and sent to PACS. Complications None Technical Quality Overall image quality was good. Coronary artery opacification was adequate. Total DLP (Dose-Length Product) is 2054.2 mGy-cm. The reported value represents the total of one or more individual components during the CT acquisition of this date and at this time, and as such, the same value may appear in more than one CT report depending on the interpreting/reporting physicians. COMPARISON None FINDINGS CT Coronary Calcium Scoring LMA (Left Main Artery) = 0 LAD (Left Anterior Descending) = 0 LCX (Left Coronary Circumflex) = 0 RCA (Right Coronary Artery) = 0 Total Calcium Score = 0 using the AJ-130 method. The interpretation of the calcium heart score is based on the following continuum*: 0 = no calcified plaque detected (risk of coronary artery disease is very low ??? less than 5%) 1-10 = calcium detected in extremely minimal levels (risk of coronary diseases is still low ??? less than 10%) 11-100 = mild levels of plaque detected with certainty (mild or minimal narrowing of heart arteries is likely) 101-400 = definite,at least moderate levels of plaque detected (relatively high risk of a heart attack within 3-5 years) >401-999 = extensive levels of plaque detected (high risk of heart attack, high levels of vascular disease are present, high likelihood of at least one significant coronary narrowing) *The calcium heart score quantifies the burden of coronary calcification/plaque in the coronary arteries. The calcium heart score is not able to evaluate the presence or burden of non-calcified (i.e. soft) plaque. There is no identifiable calcification in the aortic valve, mitral annulus or mitral valve, pericardium, or myocardium. Coronary CT Angiography The coronary arterial system is right dominant. Quantitative Stenosis Grading: Left Main (LM): The left main originates normally from the left sinus of Valsalva. The LM bifurcates into the left anterior descending artery and left circumflex artery. The LM is patent with no evidence of atherosclerosis. Left Anterior Descending (LAD) and Diagonal Branches: The LAD gives off 4 diagonal branches. The LAD and its branches are patent with no evidence of atherosclerosis. There is no evidence of LAD-myocardial bridge. Left Circumflex (LCX) and Obtuse Marginals (OM): The LCX gives off 1 Obtuse Marginal (OM) branch. The LCX and its branches are patent with no evidence of atherosclerosis. Right Coronary Artery (RCA): The RCA originates normally from the right sinus of Valsalva. The RCA gives off a posterior descending artery (PDA) and posterolateral (PL) branches. The RCA and its branches are patent with no evidence of atherosclerosis. Non-Coronary Cardiac Findings: Analysis of the left ventricular (LV) structure and function was performed after 3-D reconstruction of the LV from axial images, with user-corrected automatic contouring for assessment of LV volumes and user-defined reconstruction from oblique planes for measurement of 3-D cardiac structure and function. -The left ventricle systolic function is normal. -There is no left atrial appendage filling defect. Two right pulmonary veins and two left pulmonary veins drain normally into the left atrium. -No pericardial thickening or calcification. -Central and branch pulmonary arteries in the [id number] are unremarkable. -Thoracic aorta within the visualized thoracic aortic-branches in the [id number] is unremarkable. Extracardiac Structures No significant extra-cardiac findings. Note, however, that this study is focused on the cardiac findings. IMPRESSION -No coronary calcification with an Agatston score = 0 using the AJ-130 method. -No evidence of significant flow-limiting atherosclerosis of the coronary arteries. -No evidence of coronary anomalies or myocardial bridges. -CAD-RADS 0. Management recommendations per ACC/AHA guidelines*, as clinically appropriate. *Recommendations: CAD RADS 0: Reassurance. Consider non-atherosclerotic causes of chest pain. CAD RADS 1: Consider non-atherosclerotic causes of chest pain. Consider preventive therapy and risk factor modification. CAD RADS 2: Consider non-atherosclerotic causes of chest pain. Consider preventive therapy and risk factor modification, particularly for patients with nonobstructive plaque in multiple segments. CAD RADS 3: Consider further functional testing. Consider symptom-guided anti-ischemic and preventive pharmacotherapy as well as risk factor modification per published guideline statements. CAD RADS 4A: Consider further functional testing or invasive coronary angiography with revascularization per published guideline statements. Consider symptom-guided anti-ischemic and preventive pharmacotherapy as well as risk factor modification per published guideline statements. CAD RADS 4B: Invasive coronary angiography recommended with revascularization per published guideline statements. Consider symptom-guided anti-ischemic and preventive pharmacotherapy as well as risk factor modification per published guideline statements. CAD RADS 5: Consider invasive angiography and/or viability assessment with revascularization per published guideline statements. Consider symptom-guided anti-ischemic and preventive pharmacotherapy as well as risk factor modification per published guideline statements. CRITICAL RESULT None COMMUNICATION Per this written report The coronary and cardiac findings of this CCTA were reviewed, reported, and signed by Ian Ospina MD (Extractor Plant Operator) Conclusion Electronically signed by : Kristen Ospina MD 09/02/2023 14:10:14
[2023-09-01] MEDS: IVABRADINE HCL 7.5MG TABLET PO (09:21)
[2023-09-01] MEDS: METOPROLOL TARTRATE 50MG TABLET PO (09:22)
[2023-09-01] MEDS: METOPROLOL TARTRATE 25MG TABLET 25 MG (09:23)
[2023-09-01] MEDS: NITROGLYCERIN 0.4MG SL TABLET SL (10:15)
[2023-09-01] MEDS: 0.9 % SODIUM CHLORIDE 50 ML VIAL IV (10:30)
[2023-09-01] MEDS: IOPAMIDOL-370 (76%);100ML BOTTLE 85 ML IV (10:30)
== END 2023-09-01 11:02 | disposition home or self-care (01) ==
PROVIDERS: PCP Nurse Practitioner Family; Visit Provider Nurse Practitioner Family
DX: R06.00 Dyspnea, unspecified (principal); R07.9 Chest pain, unspecified; R42 Dizziness and giddiness; R94.31 Abnormal electrocardiogram [ECG] [EKG]; R53.83 Other fatigue; F10.91 Alcohol use, unspecified, in remission; F41.9 Anxiety disorder, unspecified
CPT/HCPCS: 75571; 75574; Q9967

== ENCOUNTER 2023-09-10 08:54 | Outpatient (CLI) | payer OTHER, SELFPAY ==
--- NOTE | 2023-09-10 08:55 | CT_ITS ---
FINAL REPORT TECHNIQUE: Then section axial CT images of the chest were obtained with contrast. Three-D reformatted images were also obtained.This study was performed with techniques to keep radiation doses as low as reasonably achievable (ALARA). Individualized dose reduction techniques using automated exposure control or adjustment of mA and/or kV according to the patient''s size were employed. CLINICAL HISTORY: sob COMPARISON: None FINDINGS: There is no evidence of pulmonary embolism. There is no evidence of thoracic aortic aneurysm or dissection. There is no evidence of mediastinal or hilar mass or adenopathy. There is no evidence of pulmonary mass or suspicious nodule. Mild scarring is noted in the lung fishman bilaterally. Limited images of the upper abdomen are unremarkable. IMPRESSION: No evidence of pulmonary embolism. No mass or localized inflammatory process. Reviewed, Interpreted and Dictated by Theodore Arzate III, MD Transcribed by Kita White Authenticated and [facility]
--- NOTE | 2023-09-10 09:01 | CA_ITS ---
APPROVED REPORT EXAM: Comprehensive 2D, Doppler, and color-flow Echocardiogram Ghost Writer: Aileen Wilson CRT Ht: 6 ft 3 in Wt: 182lbs BSA: 2.11 BP: 131/77 mmHg Indications: Chest Pain, [place], hx alcohol use 2D Dimensions LA Volume 45.40 mL LA Volume Index 21.00 mL/m2 (M/F) 16-34 M-Mode Dimensions RVDd 3.18 cm (0.9-2.6) LA Diam 3.30 cm (1.9-4.0) LVDd 5.47 cm (3.5-5.7) LVDs 3.97 cm (3.5-5.7) IVSd 1.04 cm (0.6-1.1) PWd 0.72 cm (0.6-1.1) EF (Teich) 52.70% FS 27.40% EDV (Teich) 145.60 mL TAPSE 2.17 (<1.7) ESV (Teich) 68.80 mL LV Diastology E Decel Time 280 (160-240 msec) E/A Ratio 1.73 MED A' 10.40 cm/s LAT A' 8.80 cm/s Aortic Valve AO Peak GR. 5.40 mmHg Mitral Valve MV A Velocity 44.0 (40-130 cm/s) E/A Ratio 1.73 Tricuspid Valve TR P. Velocity 201.00 cm/s RAP Estimate 10.00 mmHg RVSP 26.10 mmHg Left Ventricle The left ventricle is normal size. The left ventricular systolic function is normal. The left ventricular ejection fraction is within the normal range. There is normal left ventricular wall thickness. There is normal LV segmental wall motion. The left ventricular diastolic function is normal. LVEF is 55%. Right Ventricle The right ventricle is normal size. The right ventricular systolic function is normal. Atria The left atrium size is normal. The right atrium size is normal. There is no Doppler evidence of interatrial shunt. Aortic Valve The aortic valve opens well. There is no aortic valvular stenosis. No aortic regurgitation is present. Mitral Valve The mitral valve is normal in structure. No evidence of mitral valve stenosis. There is trace mitral valve regurgitation noted. Tricuspid Valve The tricuspid valve leaflets are thin and pliable. Trace tricuspid regurgitation. There is insufficient TR jet to estimate RVSP. Pulmonic Valve The pulmonary valve is normal in structure. Trace pulmonic regurgitation. Great Vessels The aortic root is normal in size. The ascending aorta is normal in size. IVC is dilated, but collapses >50% with inspiration. RA pressure is estimated at 8 mmHg. Pericardium There is no pericardial effusion. Other Information Study Quality: Adequate Conclusion Normal biventricular systolic function. No significant valvular stenosis or regurgitation. Electronically signed by : Kristen Ospina MD 09/14/2023 16:06:14
[2023-09-10] MEDS: SODIUM CHLORIDE 0.9% 10ML SYR (RAD ONLY) 10 ML IV (09:10)
[2023-09-10] MEDS: IOPAMIDOL-370 (76%);100ML BOTTLE 100 ML IV (09:10)
[2023-09-10] MEDS: 0.9 % SODIUM CHLORIDE 50 ML VIAL IV (09:11)
== END 2023-09-10 23:59 ==
LOC: RAD 08:55
PROVIDERS: PCP Nurse Practitioner Family; Visit Provider Nurse Practitioner Family
DX: R00.0 Tachycardia, unspecified (principal); R00.2 Palpitations; R07.9 Chest pain, unspecified; R06.09 Other forms of dyspnea; F41.9 Anxiety disorder, unspecified; R94.31 Abnormal electrocardiogram [ECG] [EKG]; R42 Dizziness and giddiness; R53.83 Other fatigue; Z78.9 Other specified health status; F10.91 Alcohol use, unspecified, in remission
CPT/HCPCS: 71275; 93306; Q9967

== ENCOUNTER 2024-02-21 09:49 | Emergency (ER) | payer OTHER, SELFPAY ==
[2024-02-21 10:10] VITALS: BP 138/80; PULSE 87; RESP 18; TEMP 36.7; O2SAT 98; BMI 22.2
--- NOTE | 2024-02-21 10:22 | EXP.UTC ---
Discharge Plan Disposition Patient Disposition: Home, Self-Care Condition: Good Prescriptions Prescriptions: New amoxicillin 500 mg tablet 500 mg PO BID 10 Days Qty: 20 0RF prednisone 20 mg tablet 20 mg PO BID Qty: 10 0RF Referrals Follow up/Referrals: Provider,Referral, MD [Primary Care Provider] - See instructions Activity Restrictions/Add. Instructions Additional Instructions/Restrictions: Start antibiotic as soon as possible and be sure to take as ordered for full length of time even though he should start feeling better in 24-48 hours. Tylenol or Motrin as needed for pain or fever Encourage fluids, water, Gatorade, Powerade, Pedialyte if /toddler/child Warm compresses often helps when placed over ear Return immediately for new or worsening symptoms no noticeable improvement in 48-72 hours and in 10-14 days to ensure the ears are return to baseline. Follow-up with primary care Clinical Impressions Clinical Impression: Bronchitis Otitis media Qualifiers: Otitis media type: suppurative Chronicity: acute Laterality: right Recurrence: non-recurrent Spontaneous tympanic membrane rupture: with spontaneous rupture Qualified Code(s): H66.011 - Acute suppurative otitis media with spontaneous rupture of ear drum, right ear Instructions Patient Instructions: Middle Ear Infection, DI for Acute Bronchitis Print Language Print Language: Slovak Discharge ED Provider: Izabel ([facility])Nikki [facility] [place] HPI General Stated complaint: right ear pain Mode of Arrival: Ambulatory Source of Information: Patient Limitations: No Limitations Time Seen by Provider: 02/21/24 10:22 Description of Symptoms (Recalled from Triage Doc. by RN): PATIENT C/O DRAINAGE AND PAIN FROM RIGHT EAR THAT STARTED 2 WEEKS AGO, SORE THROAT, COUGH, AND CHEST CONGESTION SINCE FRIDAY HEENT Symptoms (Recalled from RN notes): Yes Resp Symptoms (Recalled from RN notes): Yes Skin Symptoms (Recalled from RN notes): No MS Symptoms (Recalled from RN notes): No Functional Status (Recalled from RN notes): WNL History of Present Illness Provider Complaint: 44-year-old female presents for right ear pain with drainage, sore throat, coughing, and nasal and chest congestion since Related Data Previous Rx's ?Medication ?Instructions ?Recorded amoxicillin 500 mg tablet 500 mg PO BID 10 days #20 tabs 02/21/24 prednisone 20 mg tablet 20 mg PO BID #10 tabs 02/21/24 Allergies Allergy/AdvReac Type Severity Reaction Status Date / Time No Known Allergies Allergy Verified 09/01/23 09:18 Worker's Comp Is this a Worker's Comp case?: No [facility] Disclaimer: The information contained in this section may have been updated after the patient was seen, as this information can be updated by other users. 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) Smoking Status: Current every day smoker tobacco type: smokeless tobacco alcohol intake: former substance use type: marijuana current occupational status: employed Travel in the last 8 weeks: None adopted: No caregiver/support person: No foster care: No ROS Obtained: Yes Systems reviewed as appropriate & no additional complaints except as documented Physical Exam General General appearance: alert and in no apparent distress Eye Eye exam: Present normal appearance and PERRL ENT ENT exam: Present mucous membranes moist Expanded ENT Exam TM/Canal exam: Right TM: erythema, perforation, loss of landmarks (Swelling and drainage noted to the canal) and canal tenderness Respiratory Respiratory exam: Present wheezes Cardiovascular Cardiovascular exam: Present regular rate and normal rhythm Neurological Exam Neurological exam: Present alert and oriented X3 Skin Skin exam: Present warm and intact Medical Decision Making Medical Records Medical records reviewed: Yes I reviewed the patient's medical records. Janes Inquiry Pt receiving controlled substance: No Janes was queried for this patient: No Vital Signs: 02/21/24 10:10 Temperature 98.1 F Temperature Source Oral Pulse Rate [Left Brachial] 87 Respiratory Rate 18 Blood Pressure [Left Arm] 138/80 Blood Pressure Mean [Left Arm] 99 Blood Pressure Source [Left Arm] Automatic Cuff Blood Pressure Position [Left Arm] Sitting 02 Sat by Pulse Oximetry 98 Oxygen Delivery Method Room Air
[2024-02-21 10:43] VITALS: BP 138/80; PULSE 87; RESP 18; TEMP 36.7; O2SAT 98
[2024-02-21 10:44] LABS: UTC Strep Screen (Rapid) Negative (Negative)
== END 2024-02-21 10:45 | disposition home or self-care (01) ==
PROVIDERS: Emergency Provider Nurse Practitioner Family
DX: H66.011 Acute suppurative otitis media with spontaneous rupture of ear drum, right ear (principal); R05.9 Cough, unspecified; R07.0 Pain in throat; H92.01 Otalgia, right ear
CPT/HCPCS: 87880; 99204; 99212; G0463

== ENCOUNTER 2024-03-14 18:38 | Emergency (ER) | payer OTHER, SELFPAY ==
--- NOTE | 2024-03-14 19:00 | ED_ITS ---
Discharge Plan Disposition Patient Disposition: Home, Self-Care Condition: Good Prescriptions Prescriptions: New methylprednisolone 4 mg Tablets,Dose Pack 4 mg PO DIRECTED 6 Days Qty: 21 0RF Rx Instructions: Take 1 pack as directed for 6 days ciprofloxacin-dexamethasone 0.3-0.1 % Drops,Suspension 2 drp Ear-Both BID 7 Days Qty: 1 0RF azithromycin [Zithromax] 250 mg tablet 250 mg PO UD DOSE PK Qty: 6 0RF Rx Instructions: Take two (2) tablets today, then one (1) tablet days #2 thru #5 Referrals Follow up/Referrals: Geoff Pruitt MD [Physician] - See instructions Provider,MD Carlos [Primary Care Provider] - See instructions Activity Restrictions/Add. Instructions Additional Instructions/Restrictions: Drink plenty of fluids. Take tylenol or ibuprofen for pain or fever. Take the medications as directed. Follow up with your regular doctor. GO TO THE ER FOR ANY WORSENING SYMPTOMS Use the ear drops as directed. Follow up with the ENT doctor (Dr. Pruitt). Clinical Impressions Clinical Impression: Acute otitis media of both ears with perforation Stand Alone Forms Stand Alone Forms: Work/School Release Instructions Patient Instructions: How to Instill Ear Drops, Middle Ear Infection, Ruptured Eardrum Print Language Print Language: Romansh Discharge ED Provider: Kei Glez [facility] General Stated complaint: ear pain Time Seen by Provider: 03/14/24 19:00 Related Data Previous Rx's ?Medication ?Instructions ?Recorded azithromycin 250 mg tablet 250 mg PO UD DOSE PK #6 tabs 03/14/24 (Zithromax) ciprofloxacin 0.3 %-dexamethasone 2 drp Ear-Both BID 7 days #1 ea 03/14/24 0.1 % ear drops,suspension methylprednisolone 4 mg tablets in 4 mg PO DIRECTED 6 days #21 tabs 03/14/24 a dose pack Allergies Allergy/AdvReac Type Severity Reaction Status Date / Time No Known Allergies Allergy Verified 09/01/23 09:18 [facility] Disclaimer: The information contained in this section may have been updated after the patient was seen, as this information can be updated by other users. 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) Smoking Status: Current every day smoker tobacco type: smokeless tobacco alcohol intake: former substance use type: marijuana current occupational status: employed Travel in the last 8 weeks: None adopted: No caregiver/support person: No foster care: No ROS Obtained: Yes All systems reviewed & no additional complaints except as documented Constitutional Constitutional: Denies chills, Reports fever(s) and Reports poor appetite Eyes Eyes: Denies eye discharge ENT Ears, Nose, Mouth, and Throat: Denies ear discharge, Reports otalgia, Denies hearing loss, Denies sinus pain and Reports sore throat Cardiovascular Cardiovascular: Denies chest pain and Denies dyspnea Respiratory Respiratory: Denies chest congestion, Reports cough and Denies dyspnea Gastrointestinal Gastrointestingal: Denies abdominal pain, diarrhea, nausea or vomiting Musculoskeletal Musculoskeletal: Denies arthralgias Integumentary/Breasts Skin/Breast: Denies rash Physical Exam General General appearance: alert and in no apparent distress Head Head exam: atraumatic, normocephalic and normal inspection Eye Eye exam: Present normal appearance; Absent PERRL or EOMI ENT ENT exam: Present mucous membranes moist and normal external ear exam Expanded ENT Exam TM/Canal exam: Bilateral TM: erythema, bulging and effusion Nose exam: Absent sinus tenderness Nasal speculum exam: Bilateral: normal Mouth exam: Present normal external inspection and other; Absent drooling Teeth exam: Present normal inspection Throat exam: Present tonsillar erythema and tonsillomegaly Neck Neck exam: Present normal inspection, full ROM and trachea midline; Absent tenderness, meningismus or lymphadenopathy Chest Chest inspection: Present normal inspection and symmetric chest wall rise; Absent tenderness Respiratory Respiratory exam: Present normal lung sounds bilaterally; Absent respiratory distress, wheezes or stridor Cardiovascular Cardiovascular exam: Present regular rate, normal rhythm and normal heart sounds; Absent tachycardia or irregular rhythm Abdominal Exam Abdominal exam: Present soft and normal bowel sounds; Absent distention, tenderness, guarding, rebound or rigidity Extremities Exam Extremities exam: Present normal inspection and normal capillary refill; Absent tenderness, joint swelling or calf tenderness Back Exam Back exam: Present normal inspection and full ROM; Absent tenderness, CVA tenderness (R) or CVA tenderness (L) Neurological Exam Neurological exam: Present alert, oriented X3, CN II-XII intact, normal gait and reflexes normal; Absent motor sensory deficit Psychiatric Psychiatric exam: Present normal affect and normal mood Skin Skin exam: Present warm, dry, intact and normal color Lymphatic Lymphatic Findings: no adenopathy Medical Decision Making Medical Records Medical records reviewed: No I reviewed the patient's medical records. Screening: Per USPSTF and CDC recommendations, given the prevalence of disease in our region, it is our hospital?s policy to screen for HIV and viral Hepatitis for all patients aged 18 and over and those with ongoing risk factors. Janes Inquiry Pt receiving controlled substance: No
[2024-03-14 19:05] VITALS: BP 137/82; PULSE 99; RESP 20; TEMP 36.6; O2SAT 98; BMI 21.9
[2024-03-14 19:58] VITALS: BP 137/82; PULSE 99; RESP 20; TEMP 36.6
== END 2024-03-14 20:02 | disposition home or self-care (01) ==
PROVIDERS: Emergency Provider Nurse Practitioner Family
DX: H66.013 Acute suppurative otitis media with spontaneous rupture of ear drum, bilateral (principal)
CPT/HCPCS: 99213; G0381

== ENCOUNTER 2024-04-25 11:36 | Emergency (ER) | payer OTHER, SELFPAY ==
[2024-04-25 12:12] VITALS: BP 103/74; PULSE 76; RESP 20; TEMP 36.9; O2SAT 97; BMI 23.1
--- NOTE | 2024-04-25 12:12 | EXP.UTC ---
Discharge Plan Prescriptions Prescriptions: New methylprednisolone 4 mg Tablets,Dose Pack 4 mg PO DIRECTED 6 Days Qty: 21 0RF Rx Instructions: Take 1 pack as directed for 6 days methocarbamol 750 mg tablet 750 mg PO Q8H PRN (Reason: muscle spasm) Qty: 30 0RF Referrals Follow up/Referrals: Provider,Referral, [Primary Care Provider] - See instructions Activity Restrictions/Add. Instructions Additional Instructions/Restrictions: Go home and rest. It would be best if you rested tomorrow too. No heavy lifting & No twisting for the next couple of days. Take the oral medications as directed. The muscle relaxer (methocarbamol) will make you drowsy, so don't drive or operate heavy machinery after taking it. Follow up with your regular doctor. GO TO THE ER FOR ANY WORSENING SYMPTOMS OR CONCERN, ESPECIALLY BOWEL OR BLADDER ISSUES, SADDLE AREA NUMBNESS, FEVER, ETC Clinical Impressions Clinical Impression: Low back pain Stand Alone Forms Stand Alone Forms: Work/School Release Instructions Patient Instructions: DI for Low Back Pain, Methocarbamol, Methylprednisolone Print Language Print Language: Telugu Discharge ED Provider: Kei Glez [facility] General Stated complaint: lower back pain x 1 week Time Seen by Provider: 04/25/24 12:12 History of Present Illness Provider Complaint: He states that for the past approx 2 weeks he has had had middle and lower back pain. He denies that this pain radiates anywhere. He denies any bowel or bladder issues. He denies any fall, mva or other injury preceding the beginning of his pain. He denies lifting anything significant before his pain started. He came in today because he states that pain is weird because it has continued as long as it has. In the past he has had episodes of low back pain after working hard that got better within a few days with rest and ibuprofen. He denies any numbness or tingling of his his lower extremities or saddle area. Related Data Previous Rx's ?Medication ?Instructions ?Recorded methocarbamol 750 mg tablet 750 mg PO Q8H PRN muscle spasm #30 04/25/24 tabs methylprednisolone 4 mg tablets in 4 mg PO DIRECTED 6 days #21 tabs 04/25/24 a dose pack Allergies Allergy/AdvReac Type Severity Reaction Status Date / Time No Known Allergies Allergy Verified 09/01/23 09:18 [facility] Disclaimer: The information contained in this section may have been updated after the patient was seen, as this information can be updated by other users. 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 , [employer]) Sinus tachycardia Abnormal electrocardiogram [ECG] [EKG] Depression Anxiety Surgical History , [employer]) History of ankle surgery History of foot surgery Family History , [employer]) Marfans syndrome Son Substance abuse Mother Alcoholism Father Mother Heart attack Family/Other Social History , [employer]) Smoking Status: Current every day smoker tobacco type: smokeless tobacco alcohol intake: former substance use type: marijuana current occupational status: employed Travel in the last 8 weeks: None adopted: No caregiver/support person: No foster care: No ROS Obtained: Yes All systems reviewed & no additional complaints except as documented Constitutional Constitutional: Denies chills, Denies fever(s) and Denies weakness Eyes Eyes: Denies eye discharge ENT Ears, Nose, Mouth, and Throat: Denies dizziness, Denies otalgia, Denies neck pain and Denies sore throat Cardiovascular Cardiovascular: Denies chest pain Respiratory Respiratory: Denies shortness of breath, Denies chest congestion, Denies cough, Denies stridor and Denies wheezing Gastrointestinal Gastrointestingal: Denies nausea or vomiting Genitourinary Male Genitourinary: Denies difficulty urinating, Denies testicular pain, Denies urinary hesitancy and Denies urinary incontinence Musculoskeletal Musculoskeletal: Reports as per HPI, Reports back pain, Denies neck pain and Denies numbness Integumentary/Breasts Skin/Breast: Denies redness, Denies rash and Denies wounds Neurologic Neurologic: Denies dizziness, Denies numbness, Denies paresthesias, Denies radicular pain, Denies sensory deficit and Denies weakness Allergic/Immunologic Allergic/Immunologic: Denies wheezing Physical Exam General General appearance: alert and in no apparent distress Head Head exam: atraumatic, normocephalic and normal inspection Eye Eye exam: Present normal appearance, PERRL and EOMI ENT ENT exam: Present normal exam, normal oropharynx, mucous membranes moist, TM's normal bilaterally and normal external ear exam Neck Neck exam: Present normal inspection, full ROM and trachea midline; Absent meningismus or lymphadenopathy Chest Chest inspection: Present normal inspection and symmetric chest wall rise; Absent tenderness Respiratory Respiratory exam: Present normal lung sounds bilaterally; Absent respiratory distress Cardiovascular Cardiovascular exam: Present regular rate and normal rhythm; Absent JVD Abdominal Exam Abdominal exam: Present soft and normal bowel sounds; Absent distention, tenderness or guarding Extremities Exam Extremities exam: Present normal inspection, full ROM and normal capillary refill; Absent calf tenderness Back Exam Back exam: Present normal inspection; Absent tenderness, CVA tenderness (R), CVA tenderness (L), muscle spasm, paraspinal tenderness or vertebral tenderness Neurological Exam Neurological exam: Present alert, oriented X3, CN II-XII intact, normal gait and reflexes normal; Absent motor sensory deficit Expanded Neurological Exam Speech: Present fluid speech Cranial nerves: Normal: EOM function (II, III, IV, ), facial sensation (V), facial palsy (VII), gag reflex (IX), spinal accessory function (XI) and tongue deviation (XII) Cerebellar function: normal gait Motor strength - LUE: 5/5 Motor strength - RUE: 5/5 Motor strength - LLE: 5/5 Motor strength - RLE: 5/5 Sensory exam upper extremity: Normal: light touch and 2 point discrimination Sensory exam lower extremity: Normal: light touch and 2 point discrimination DTR: 2+: biceps (L), biceps (R), patellar (L), patellar (R), Achilles tendon (L) and Achilles tendon (R) Spinal cord function: Absent saddle anesthesia Psychiatric Psychiatric exam: Present normal affect and normal mood Skin Skin exam: Present warm, dry, intact and normal color Lymphatic Lymphatic Findings: no adenopathy Medical Decision Making Medical Records Medical records reviewed: No I reviewed the patient's medical records. Screening: Per USPSTF and CDC recommendations, given the prevalence of disease in our region, it is our hospital?s policy to screen for HIV and viral Hepatitis for all patients aged 18 and over and those with ongoing risk factors. Janes Inquiry Pt receiving controlled substance: No Radiology Data #1: Image(s): L-Spine Image Reviewed: Yes I reviewed the patient's radiology image and Yes I have reviewed radiologist's interpretation Preliminary Findings: Abnormal #2: Image(s): T-Spine Image Reviewed: Yes I reviewed the patient's radiology image and Yes I have reviewed radiologist's interpretation Preliminary Findings: Abnormal Procedures Miscellaneous Procedure Procedure Performed: Once the radiologist read of his x-rays were available, he was called and instructed to follow up with primary care soon. He was instructed to avoid heavy lifting until instructed differently and go the ER for any worsening symptoms.
--- NOTE | 2024-04-25 12:18 | XR_ITS ---
PROCEDURE INFORMATION: Exam: XR Lumbosacral Spine Exam date and time: 04/25/2024 12:24 PM Age: 44 years old Clinical indication: Low back pain; Additional info: Low and middle back pain, no known injury TECHNIQUE: Imaging protocol: Radiologic exam of the lumbosacral spine. Views: 2 or 3 views. COMPARISON: No relevant prior studies available. FINDINGS: Bones/joints: There is normal anatomic alignment of the lumbar spine. There are [id number] multilevel chronic degenerative changes throughout the lumbar spine. Mild age-indeterminate compression fracture deformity of L1. Consider nonemergent correlation with MRI of the lumbar spine. Soft tissues: Unremarkable. IMPRESSION: 1. Mild age-indeterminate wedge compression fracture deformity of L1. 2. [id number] multilevel chronic degenerative changes throughout the lumbar spine.
--- NOTE | 2024-04-25 12:18 | XR_ITS ---
PROCEDURE INFORMATION: Exam: XR Thoracic Spine Exam date and time: 04/25/2024 12:25 PM Age: 44 years old Clinical indication: Pain in thoracic spine; Without myelpathy or radiculopathy; Additional info: Low and middle back pain, no known injury TECHNIQUE: Imaging protocol: Radiologic exam of the thoracic spine. Views: 2 views. COMPARISON: CR XR LUMBAR SPINE 2-3V 04/25/2024 12:24 PM FINDINGS: Bones/joints: Mild age-indeterminate compression fracture deformity of what appears to be T8. There is normal anatomic alignment of the thoracic spine. There are multilevel chronic degenerative changes throughout the thoracic spine. Soft tissues: Unremarkable. IMPRESSION: 1. Mild multilevel chronic degenerative changes throughout the thoracic spine. 2. Mild age-indeterminate compression fracture deformity of T8.
[2024-04-25 12:31] LABS: Apearance,Urine Clear (Clear); Blood, Urine Negative (Negative); Color,Urine Yellow (Yellow); Glucose,Urine (UA) Negative (Negative); Ketones,Urine Negative (Negative); PH,Urine 5.5 (5.0-8.5); Protein,Urine Negative (Negative); Specific Gravity, Urine 1.005 (1.005-1.030)
[2024-04-25 12:32] LABS: Bilirubin,Urine Negative (Negative); UTC Leukocyte Esterase,Urine Negative (Negative); UTC Nitrate,Urine Negative (Negative); Urobilinogen,Urine 0.2 EU/dl (0.2)
[2024-04-25 13:17] VITALS: BP 103/74; PULSE 76; RESP 20; TEMP 36.9
== END 2024-04-25 13:20 | disposition home or self-care (01) ==
PROVIDERS: Emergency Provider Nurse Practitioner Family
DX: M54.50 Low back pain, unspecified (principal)
CPT/HCPCS: 72070; 72100; 81003; 99213; G0381

== ENCOUNTER 2024-04-27 11:50 | Outpatient (CLI) | payer OTHER, SELFPAY ==
[2024-04-27 18:43] LABS: Basophils % 0.5 % (0.1-2.0); Eosinophils % 0.5 % (0.1-12.0); Hematocrit 45.1 % (42.0-52.0); Hemoglobin 15.3 g/dL (14.1-18.0); Lymphocytes # 1.5 K/mm3 (0.7-4.5); Lymphocytes % 17.4 % (10-50); Mean Corpuscular Hemoglobin 31.8 pg (27.0-31.2); Mean Corpuscular Volume 93.7 fl (80-94); Mean Platelet Volume 8.7 fl (7.4-10.4); Monocytes # 0.4 K/mm3 (0.1-1.0); Neutrophils # 6.4 K/mm3 (1.8-7.8); Neutrophils % 76.6 % (37.0-80.0); Platelet Count 236 K/mm3 (142-424); Red Blood Count 4.81 M/mm3 (4.60-6.20); Red Cell Distribution Width 13.1 % (11.5-17.5); Reticulocyte % (Auto) 1.1 % (0.9-3.2); White Blood Count 8.4 K/mm3 (4.8-10.8)
[2024-04-27 19:02] LABS: Alanine Aminotransferase 25 U/L (12-78); Albumin Level 4.7 g/dl (3.5-5.0); Alkaline Phosphatase 65 U/L (38-126); Anion Gap 15.2 mEq/L (5-15); Aspartate Amino Transferase 26 U/L (17-59); Bilirubin,Total 0.9 mg/dl (0.2-1.3); Blood Urea Nitrogen 13 mg/dl (9-20); Calcium 9.3 mg/dl (8.4-10.2); Carbon Dioxide 20 mmol/L (22.0-30.0); Chloride 104 mmol/L (98-107); Chol/HDL Ratio 3.3 (1-3.5); Cholesterol 183 mg/dl (140-200); Estimated Glomerular Filt Rate 91 ml/min (>60); GFR (African American) 110 ML/MIN (>60); Globulin 2.4 g/dL (1.3-3.2); Glucose 90 mg/dl (74-100); HDL Cholesterol 56 mg/dl (40-60); Potassium 4.2 mmoL/L (3.5-5.1); Sodium 135 mmol/L (136-145); Total Protein,Serum 7.1 g/dl (6.3-8.2); Triglycerides 63 mg/dl (30-150); VLDL Cholesterol 13 mg/dL (0-40)
[2024-04-27 19:11] LABS: Hemoglobin A1C 5.3 % (4.0-6.0)
[2024-04-27 19:13] LABS: Direct LDL Cholesterol 111.35 mg/dL (100-129)
[2024-04-27 19:21] LABS: 25-OH Vitamin D, Total 21.4 ng/mL (30-100)
[2024-04-27 19:33] LABS: Prostate Specific Ag Screen 0.3 ng/ml (0.0-4.0); Thyroid Stimulating Hormone 0.98 uIU/mL (0.465-4.68)
[2024-04-27 20:09] LABS: Vitamin B12 460 pg/mL (239-931)
[2024-04-27 20:20] LABS: Folate 4.94 ng/mL
[2024-04-27 20:28] LABS: Iron 134 ug/dL (49-181)
[2024-04-27 20:38] LABS: Total Iron Binding Capacity 317 ug/dL (261-462)
[2024-04-27 20:47] LABS: HIV (1&2) Antibody Rapid NONREACTIVE (NONREACTIVE)
[2024-04-27 21:05] LABS: Ferritin 102 ng/ml (17.9-464)
[2024-04-29 06:26] LABS: HCV Ab Non Reactive (Non Reactive)
== END 2024-04-27 23:59 | disposition home or self-care (01) ==
LOC: LAB.DROPOF 04-28 13:35
PROVIDERS: PCP Student in an Organized Health Care Education/Training Program; Visit Provider Student in an Organized Health Care Education/Training Program
DX: S22.060A Wedge compression fracture of T7-T8 vertebra, initial encounter for closed fracture (principal); M54.50 Low back pain, unspecified; Z13.1 Encounter for screening for diabetes mellitus; D64.9 Anemia, unspecified; Z11.59 Encounter for screening for other viral diseases; Z13.21 Encounter for screening for nutritional disorder; Z12.5 Encounter for screening for malignant neoplasm of prostate; Z11.4 Encounter for screening for human immunodeficiency virus [HIV]; Z13.220 Encounter for screening for lipoid disorders; Z13.29 Encounter for screening for other suspected endocrine disorder
CPT/HCPCS: 80050; 80053; 80061; 82306; 82607; 82728; 82746; 83036; 83540; 83550; 84443; 85025; 85044; 86803; 87389; G0103

== ENCOUNTER 2024-05-05 14:58 | Outpatient (CLI) | payer OTHER, SELFPAY ==
--- NOTE | 2024-05-05 14:59 | XR_ITS ---
FINAL REPORT TECHNIQUE: Bone densitometry calculations of the lumbar spine and left hip were obtained. CLINICAL HISTORY: compression fracture COMPARISON: None FINDINGS: Using L1-4, the bone mineral density of the spine is 0.793 g/cm2, corresponding to T-score of -2.7 and a Z score of -2.5. This is within the range of osteoporosis. Using the left hip, the bone mineral density of the total left hip is 0.709 g/cm2, corresponding to a T-score of -2.1 and a Z-score of -1.9. This is within the range of osteopenia. Using the right hip, the bone mineral density of the femoral neck is 0.647 g/cm2, corresponding to a T-score of -2.1 and a Z-score of -1.4. This is within the range of osteopenia. FRAX not reported because some T-score at or below-2.5. NOTE: T-score: Standard deviation compared with peak bone mass of young adult mean. *Following the recommendations of the International Society of Bone densitometry, classification of hip BMD is based on the lower of two T-scores; total hip or femoral neck. IMPRESSION: 1. Bone mineral density of the lumbar spine within the range of osteoporosis. 2. Bone mineral density of the left femoral neck within the range of osteopenia. 3. Bone mineral density of the right femoral neck within the range of osteopenia. Reviewed, Interpreted and Dictated by Anna Terrell MD Transcribed by Anita Rose Authenticated and [facility]
== END 2024-05-05 23:59 | disposition home or self-care (01) ==
LOC: RAD 14:59
PROVIDERS: PCP Student in an Organized Health Care Education/Training Program; Visit Provider Student in an Organized Health Care Education/Training Program
DX: S22.060A Wedge compression fracture of T7-T8 vertebra, initial encounter for closed fracture (principal); S32.010A Wedge compression fracture of first lumbar vertebra, initial encounter for closed fracture
CPT/HCPCS: 77080

== ENCOUNTER 2024-05-11 07:59 | Outpatient (CLI) | payer OTHER, SELFPAY ==
[2024-05-11 09:09] LABS: C-Reactive Protein 1.1 mg/L (0-4)
[2024-05-11 09:17] LABS: Intact Parathyroid Hormone 39.8 pg/mL (7.5-53.5)
[2024-05-11 10:22] LABS: Erythrocyte Sedimentation Rate 15 mm/hr (0-15)
[2024-05-12 12:13] LABS: Anti-Centromere B Antibodies <0.2 AI (0.0-0.9); Anti-Cyclic Citrullinated Pept 6 units (0-19); Anti-DNA (DS) Ab Qn <1 IU/mL (0-9); Anti-Jo-1 <0.2 AI (0.0-0.9); Anti-Smith Antibody <0.2 AI (0.0-0.9); Antichromatin Antibodies <0.2 AI (0.0-0.9); Antiscleroderma-70 Antibodies <0.2 AI (0.0-0.9); RNP Antibodies <0.2 AI (0.0-0.9); Sjogren's Anti-SS-A <0.2 AI (0.0-0.9); Sjogren's Anti-SS-B <0.2 AI (0.0-0.9)
[2024-05-12 14:12] LABS: Endomysial IgA Antibody Negative (Negative)
[2024-05-12 17:01] LABS: Deamidated Gliadin Abs, IgA 4 units (0-19); Deamidated Gliadin Abs, IgG 2 units (0-19); Tissue Transglutaminase IgA Ab <2 U/mL (0-3); Tissue Transglutaminase IgG Ab <2 U/mL (0-5)
[2024-05-14 08:22] LABS: Reticulin IgA Antibody Negative titer (Neg:<1:2.5)
[2024-05-18 01:07] LABS: Free Testosterone (Direct) 6.7 pg/mL (6.8-21.5); Testosterone, Total, LC/MS 447.1 ng/dL (264.0-916.0)
[2024-05-18 03:36] LABS: Rheumatoid Factor IGM < 7 U (<7)
[2024-05-18 14:26] LABS: Rheumatoid Factor IGA < 7 U (<7)
== END 2024-05-11 23:59 | disposition home or self-care (01) ==
LOC: LAB 08:01
PROVIDERS: PCP Student in an Organized Health Care Education/Training Program; Visit Provider Student in an Organized Health Care Education/Training Program
DX: M81.0 Age-related osteoporosis without current pathological fracture (principal)
CPT/HCPCS: 36415; 83516; 83970; 85651; 86140; 86200; 86225; 86235; 86255; 86256; 86431

== ENCOUNTER 2024-05-26 13:51 | Outpatient (POV) | payer OTHER, SELFPAY ==
[2024-05-26 14:48] VITALS: BP 128/73; PULSE 76; RESP 18; O2SAT 98; BMI 23.1
--- NOTE | 2024-05-26 14:57 | A.OFFVIS_ITS ---
HPI Data of Consult Patient: new to practice Consult date: 05/26/24 Requesting Physician: Debora Garcia APRN Primary Care Provider: DAPHNIE Ryan Consult Narrative Reason for consult: Low back pain, mid back pain History of present illness: Mr. Galindo is a 44 year old male who presents today as a new patient. He is a referral from [facility]. Today he rates his pain a 5 out of 10. He states he has a sharp pressure sensation that is around his low back and mid back area that does go towards his ribs. He does state that all of this started around April 25 unrelated to any specific injury or trauma. Patient states that he works at [employer] and does lift heavy items. Patient states that the pain is constant and he has not been doing as much due to this. He does state he was given methocarbamol muscle relaxer and it does help some however it is hard to gauge exactly how well it works because he is not doing a lot of movement due to the pain. Patient is scheduled for an MRI on the . He denies any history of osteoporosis and states overall he is only done more football when he was younger as a kid and did have some scoliosis history. He states he has tried oral medication such as ibuprofen and Tylenol along with heat and ice and topicals with minimal relief. His Janes has been reviewed and is appropriate. CC: Debora Garcia APRN [facility] Disclaimer: The information contained in this section may have been updated after the patient was seen, as this information can be updated by other users. 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 Sinus tachycardia Abnormal electrocardiogram [ECG] [EKG] Depression Anxiety Surgical History History of ankle surgery History of foot surgery Family History Father Alcoholism Mother Alcoholism Substance abuse Family/Other Heart attack Son Marfans syndrome Social History (Updated 05/26/24 @ 14:53 by Jackie Heart RN) Smoking Status: Current every day smoker tobacco type: smokeless tobacco alcohol intake: former substance use type: marijuana current occupational status: employed Travel in the last 8 weeks: None adopted: No caregiver/support person: No foster care: No Contact w/someone who lives/traveled outside [place] past 30 days?: No Exposure to someone with infectious disease in past 14 days?: No Do you have a fever (greater than 100.4 F or 38 C)?: No Have you tested positive for COVID-19: No Exposed to someone with COVID-19 in past 14 days?: No Do you have a sore throat?: No Do you have a cough?: No Do you have any weakness?: No Are you experiencing any nausea/vomitting?: No Do you have any diarrhea?: No Are you experiencing any unusual bleeding?: No Do you have any muscle aches/pain?: No Do you have any abdominal pain?: No Are you experiencing loss of taste or smell?: No Review of Systems Review of Systems Review of systems:: pertinent systems reviewed and negative unless documented below Review of systems (narrative): Review of Systems: General: No recent weight changes, no fever, no sleep disturbances Respiratory: No cough, no shortness of air, no recurring pulmonary infections Cardiovascular/peripheral vascular: No chest pain, no palpitations, no edema, no shortness of breath Gastrointestinal: No new onset incontinence, normal bowel movements reported Genitourinary: No new onset incontinence Musculoskeletal: Low back pain Psychiatric: [Normal mood/affect] Neurological: [Denies weakness in extremities], [denies balance issues] Meds Home Medications and Allergies Home Medications ?Medication ?Instructions ?Recorded ?Confirmed ?Type methocarbamol 750 mg tablet 750 mg PO Q8H PRN muscle spasm #30 04/25/24 05/26/24 Rx tabs buspirone 5 mg tablet 5 mg PO BID #60 tabs 04/27/24 05/26/24 Rx calcitonin (salmon) 200 1 spray intranasal (ALT) DAILY 2 04/27/24 05/26/24 Rx unit/actuation nasal spray weeks #3.7 mL naproxen 500 mg tablet 500 mg PO BID #60 tabs 04/27/24 05/26/24 Rx cholecalciferol (vitamin D3) 50 50 mcg PO DAILY #90 caps 04/29/24 05/26/24 Rx mcg (2,000 unit) capsule New Prescriptions to Start Prescriptions: Allergies Allergy/AdvReac Type Severity Reaction Status Date / Time No Known Allergies Allergy Verified 04/27/24 11:08 Objective Narrative: FINDINGS: Bones/joints: There is normal anatomic alignment of the lumbar spine. There are [id number]-[id number] multilevel chronic degenerative changes throughout the lumbar spine. Mild age-indeterminate compression fracture deformity of L1. Consider nonemergent correlation with MRI of the lumbar spine. Soft tissues: Unremarkable. IMPRESSION: 1. Mild age-indeterminate wedge compression fracture deformity of L1. 2. [id number] multilevel chronic degenerative changes throughout the lumbar spine. Assessment and Plan *Assessment and plan (1) Compression fracture: Status: Acute Category: Medical (2) Low back pain: Status: Acute Category: Medical Code(s): M54.50 - Low back pain, unspecified Plan Patient is experiencing significant pain throughout his low back related to a possible recent compression fracture of L1. I did discuss with the patient that I do believe he would benefit from a lumbar epidural at this location however at this time he would like to wait. I will order the patient a compounded cream. Patient will return to clinic in 2 weeks following his lumbar MRI for reevaluation of symptoms and plan of care. Patient has been instructed to contact the clinic with any concerns before the next appointment. Dr. Norwood has reviewed this note and agrees with this plan of care. This note was dictated using voice recognition software and make contain errors or omissions. All injections are used with Lidocaine, Bupivacaine and Depo Medrol. Occasionally urine drug screen is needed to verify patient's compliance with our office pain contract. This is ordered based off specific treatments related to chronic pain with the potential to abuse certain medications.
== END 2024-05-26 23:59 | disposition home or self-care (01) ==
LOC: SC.PAIN 13:52
PROVIDERS: PCP Student in an Organized Health Care Education/Training Program; Visit Provider Nurse Practitioner Family
DX: M54.50 Low back pain, unspecified (principal); F17.220 Nicotine dependence, chewing tobacco, uncomplicated
CPT/HCPCS: 99202; G0463

== ENCOUNTER 2024-05-31 08:43 | Outpatient (CLI) | payer OTHER, SELFPAY ==
--- NOTE | 2024-05-31 08:47 | MR_ITS ---
FINAL REPORT TECHNIQUE: Multiplanar MR without contrast CLINICAL HISTORY: THORACIC SPINE PAIN , no known injury COMPARISON: None FINDINGS: The vertebral heights are normal. Marrow signal pattern is unremarkable. Alignment is normal. No acute fracture is seen. Thoracic spinal cord shows a normal MR appearance. There is mild loss of height of multiple disc space levels, with multiple endplate Schmorl's nodes present. Mild kyphosis is present. This appearance may be seen with Scheuermann's disease. There is no canal stenosis present. IMPRESSION: Degenerative disc disease is present with mild kyphosis, and no central canal stenosis. The overall appearance is suggestive of possible Schuermann's disease. Reviewed, Interpreted and Dictated by Nicholas Perez MD Transcribed by Kita White Authenticated and [facility]
== END 2024-05-31 23:59 | disposition home or self-care (01) ==
LOC: RAD 08:44
PROVIDERS: PCP Student in an Organized Health Care Education/Training Program; Visit Provider Internal Medicine Cardiovascular Disease
DX: M54.6 Pain in thoracic spine (principal)
CPT/HCPCS: 72146

== ENCOUNTER 2024-06-16 14:58 | Outpatient (CLI) | payer OTHER, SELFPAY ==
--- NOTE | 2024-06-16 15:00 | MR_ITS ---
FINAL REPORT CLINICAL HISTORY: LBP FINDINGS: Multiplanar MR imaging of the lumbar spine was performed without contrast. On the sagittal T2-weighted images, decreased signal is seen throughout, most evident at L1-2. The vertebral alignment is normal. There is no evidence of fracture. No bony mass is identified. The conus is seen at approximately the L1 level and has an unremarkable appearance. L1-2: Mild diffuse disc bulge with mild bilateral neuroforaminal narrowing. L2-3: There is no significant canal stenosis or neural foraminal narrowing. L3-4: Moderate diffuse disc bulge with moderate bilateral neuroforaminal narrowing. L4-5: Mild to moderate diffuse disc bulge with mild bilateral facet hypertrophy and moderate bilateral neuroforaminal narrowing. L5-S1: There is no significant canal stenosis or neural foraminal narrowing. IMPRESSION: Changes of degenerative disc disease most evident at L3-4 and L4-5 where there is moderate bilateral neuroforaminal narrowing at L4-5. Reviewed, Interpreted and Dictated by Noah Duran MD Transcribed by Sheba David Authenticated and . [facility]
== END 2024-06-16 23:59 | disposition home or self-care (01) ==
LOC: RAD 14:58
PROVIDERS: PCP Student in an Organized Health Care Education/Training Program; Visit Provider Internal Medicine Cardiovascular Disease
DX: M54.50 Low back pain, unspecified (principal)
CPT/HCPCS: 72148

== ENCOUNTER 2024-10-08 07:00 | Outpatient (CLI) | payer OTHER, SELFPAY ==
--- OUTSIDE RECORDS SUMMARY | 2024-10-08 07:02 | XMS_ITS ---
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
--- OUTSIDE RECORDS SUMMARY | 2024-10-08 07:02 | XMS_ITS | Clinical Summary ---
Author Organization [facility] , [facility] Address [address] [place] [address] Phone Care Team Providers Care Lead Pressman Name Role Phone Senia Sims Unavailable Unavailable Jose LAINEZ, Jimenez Beck Unavailable [phone] Reason for Visit and Chief Complaint The Chief Complaint is: Lumbar Compression Fracture Problems Includes: Problems addressed during this encounter and other active Problems Current Visit Onset Date Resolved Date Provider Khari salomon Status Lower Back Pain 04/30/2024 Elie Noe PA-C A ctive Last Documented On 4 8:36AM ; [facility] Plan of Treatment Patient was seen by myself Elie Noe PA-C. Patient will follow up thoracic spine MRI and lumbar spine MRI Note to be off work we will get these to see if these are acute fractures or not. Prescription for Robaxin - Last Documented On 06/08/2024 8:38AM ; [facility] Pending Tests Order Diagnosis Results Due Ordering P rovider Radiology - MRI MRI Lumbar Spine Low back pain, unspecified 05/14/24 Elie Noe PA-C Last Documented On 4 9:59AM ; [facility] Assessments Includes: Assessments from this encounter Findings Thoracic and lower back pain - Last Documented On 06/08/2024 8:38AM ; [facility] Medical Equipment - Implanted Devices Includes: Current Devices No Medical Equipment Recorded Medications Includes: Medications discussed during this encounter and other current Medications New / Renewed during this visit Elie Noe PA-C on 04/30/2024 Methocarbamol 750 MG Oral Tablet Provider: Elie Noe PA-C 30 day supply: 90 tablet, 1 refills Diagnosis: Take 1 tablet every 8 hrs prn pain Pharmacy: [facility] [phone] [place], [address] - Last Documented On 4 9:54AM By Paola Yung ; [facility], [facility] Current Medications (continue as prescribed) Diclofenac Sodium 75 MG Oral Tablet Delayed Release 06/10/2024 Provider: Elie Noe PA-C Diagnosis: Last Documented On 5 1:14PM By Pavel Maguire ; [facility], [facility] Amantadine HCl 100 MG Oral Tablet 06/04/2024 Provide r: NYASIA BARAHONA MD Diagnosis: Last Documented On 5 10:24AM By Pavel Maguire ; [facility], [facility] D3 High Potency 50 MCG (1999 [place]) Oral Capsule 05/28/20 Provider: Diagnosis: Last Documented On 5 10:24AM By Pavel Maguire ; [facility], [facility] busPIRone HCl 5 MG Oral Tablet 04/28/2024 Provider: Diagnosis: Last Documented On 4 8:36AM By Paola Yung ; [facility], [facility] Naproxen 500 MG Oral Tablet 04/28/2024 Provider: Diagnosis: Last Documented On 4 8:36AM By Paola Yung ; [facility], [facility] methylPREDNISolone 4 MG Oral Tablet Therapy Pack 04/25 Provider: Diagnosis: Last Documented On 4 8:36AM By Paola Yung ; [facility], [facility] Methocarbamol 750 MG Oral Tablet 04/25/2024 Provider : Diagnosis: Last Documented On 4 8:36AM By Paola Yung ; [facility], [facility] Ciprofloxacin-dexAMETHasone 0.3-0.1% Otic Suspension 1 Provider: Diagnosis: Last Documented On 4 8:36AM By Paola Yung ; [facility], [facility] Azithromycin 250 MG Oral Tablet 03/15/2024 Provider: Diagnosis: Last Documented On 4 8:36AM By Paola Yung ; [facility], [facility] Azithromycin 250 MG Oral Tablet 03/15/2024 Provider: Diagnosis: Last Documented On 5 1:14PM By Pavel [facility] predniSONE 20 MG Oral Tablet 02/21/2024 Provider: Nikki Paiz APRN Diagnosis: Last Documented On 4 8:36AM By Paola [facility]CO [facility], [facility] Amoxicillin 500 MG Oral Capsule 02/21/2024 Provider: Nikki Paiz APRN Diagnosis: Last Documented On 4 8:36AM By Poala uYng ; [facility] Past Medications on file Diclofenac Sodium 75 MG Oral Tablet Delayed Release 06/10/2024 - 06/25/2024 Provider: Elie Noe PA-C Diagnosis: 2 once a day Last Documented On 5 10:49AM By Pavel Maguire ; [facility] Medications Administered Includes: Administered Medications from this encounter No Administered Medications Recorded Vital Signs Includes: Vital Signs from this encounter Vital Name 04/30/2024 08:37A Height (in) 75 Weight (lb) 180 Body Mass Index 22.5 Body Surface Area 2.1 Note: jm Last Documented: On 04/30/2024 8:38AM ; [facility], [facility] Results Includes: Results discussed during this encounter No Results Recorded For Specified Dates History of Present Illness Includes: History of Present Illness from this encounter HPI Newton Galindo is a 44 year old male. - Symptoms popping, catching Pain better: Resting, not sitting or standing long Pain worse: Lifting, bending . - Allergy list reviewed - Problem list reviewed - Medication list reviewed - Patient pain level from 1-10: 5 - Yes, previous treatment. - - Review of medications documented Patient is here today complaints of back pain that is started last Friday04/19/2024 he says it started getting out of bed did not have any specific injury no radicular symptoms with it. He has been unable to get the work. Most his pain seems to be in the mid back and low back area. It bothers him when he tries to bend or lift he has been taking a muscle relaxer. He denies any radicular symptoms with this or any bowel or bladder issues with this. Denies any previous history of having a fracture in his back. Social History Description Last Updated Caffeine use 04/30/2024 Last Documented On 4 8:38AM ; [facility], [facility] No recent change in diet 04/30/2024 Last Documented On 4 8:38AM ; [facility], [facility] Not a current smoker. 04/30/2024 Last Documented On 4 8:38AM ; [facility], [facility] Not exercising regularly 04/30/2024 Last Documented On 4 8:38AM ; [facility], [facility] Not using alcohol 04/30/2024 Last Documented On 4 8:38AM ; [facility], [facility] Not using drugs 04/30/2024 Last Documented On 4 8:38AM ; [facility], [facility] Smoking Status Unknown Procedures and Surgical History Surgical History Last Updated History of Previous Fractures 04/30/2024 Last Documented On 4 8:38AM ; [facility], [facility] 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 Includes: 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 addressed during this encounter Description Last Updated History of depression 04/30/2024 Last Documented On 4 8:38AM ; [facility], [facility] History of Fractures 04/30/2024 Last Documented On 4 8:38AM ; [facility], [facility] History of Irregular Heartbeat 4 Last Documented On 4 8:38AM ; [facility], [facility] History of Sleep Apnea 04/30/2024 Last Documented On 4 8:38AM ; [facility], [facility] Family History Includes: Family History addressed during this encounter Description Last Updated No significant family history 04/30/2024 Last Documented On 4 8:38AM ; [facility], [facility] Review of Systems Includes: Review of Systems from this encounter Systemic: Not feeling tired, no recent weight loss, and no recent weight gain. Head: No headache and no sinus pain. Eyes: No vision problems and no Cataracts. Glasses/Contacts. No Glaucoma. Otolaryngeal: No hearing loss and no tinnitus. Cardiovascular: No chest pain or discomfort, no palpitations, no Hypertension, and no High Cholesterol. Pulmonary: No daytime asthma symptoms and no chronic cough. No wheezing. Gastrointestinal: No heartburn and no abdominal pain. No Indigestion, no Peptic Ulcer, no GI Stomach Bleed, no Ulcers, and no Acid Reflux. Endocrine: No hot flashes, no muscle weakness, no Diabetes, no Hypothyroid, and no Hyperthyroid. Hematologic: No easy bleeding, no tendency for easy bruising, and no Anemia. Musculoskeletal: No Arthritis. Lower back pain. No soft tissue swelling. Pain localized to one or more joints. Neurological: Dizziness. No convulsions and no numbness. Psychological: Anxiety. No emotional lability. Depression. No insomnia. Not crying for no reason. Skin: No dry skin. No Ulcers. Scars. No rash. Allergic and Immunologic: No complaint of seasonal allergic reaction. Mental Status Includes: Mental Status from this encounter Description Anxiety Functional Status Includes: Functional Status from this encounter No Functional Status Recorded Physical Exam Includes: Physical Exam from this encounter Allergies Includes: Active Allergies No Known Allergies Encounters Encounter Provider Location Date Check-In Time Check-Out Time Diagnosis Physician Specified Elie Noe PA-C [facility] 04/30/20 24 8:32AM 9:23AM Insurance Includes: Active Insurance Policies Plan Name Member ID Group # Subscriber Relationship Effect isabel Dates 1 - [facility] [id number] Newton Galindo Self Clinical Notes Includes: Clinical Notes from this encounter * Progress note Date Encounter Last Documented by 04/30/2024 Physician Specified Last shaileshumeumm rose on 06/08/2024; 8:38 AM, Elie Noe PA-C; [facility] Active Problems & Conditions - Lower Back Pain Chief Complaint The Chief Complaint is: Lumbar Compression Fracture. Referred Here Referred by. History of Present Illness Newton Galindo is a 44 year old male. - Symptoms popping, catching Pain better: Resting, not sitting or standing long Pain worse: Lifting, bending . - Allergy list reviewed - Problem list reviewed - Medication list reviewed - Patient pain level from 1-10: 5 - Yes, previous treatment. - - Review of medications documented Patient is here today complaints of back pain that is started last Friday04/19/2024 he says it started getting out of bed did not have any specific injury no radicular symptoms with it. He has been unable to get the work. Most his pain seems to be in the mid back and low back area. It bothers him when he tries to bend or lift he has been taking a muscle relaxer. He denies any radicular symptoms with this or any bowel or bladder issues with this. Denies any previous history of having a fracture in his back. Current Medication - Amoxicillin 500 MG Oral Capsule 10 days, 0 refills - Azithromycin 250 MG Oral Tablet 5 days, 0 refills - busPIRone HCl 5 MG Oral Tablet 30 days, 0 refills - Ciprofloxacin-dexAMETHasone 0.3-0.1% Otic Suspension 7 days, 0 refills - Methocarbamol 750 MG Oral Tablet 10 days, 0 refills - methylPREDNISolone 4 MG Oral Tablet Therapy Pack 6 days, 0 refills - Naproxen 500 MG Oral Tablet 30 days, 0 refills - predniSONE 20 MG Oral Tablet 5 days, 0 refills Past Medical/Surgical History Reported: History of Fractures. Diagnoses: Irregular Heartbeat Sleep Apnea. Depression Surgical: - Previous Fractures Social History Not a current smoker. Current diet: No recent change in diet. Caffeine use: Caffeine use. Alcohol: Not using alcohol. Drug Use: Not using drugs. Habits: Not exercising regularly. Allergies - No Known Allergies Family History No significant family history Review Of Systems Systemic: Not feeling tired, no recent weight loss, and no recent weight gain. Head: No headache and no sinus pain. Eyes: No vision problems and no Cataracts. Glasses/Contacts. No Glaucoma. Otolaryngeal: No hearing loss and no tinnitus. Cardiovascular: No chest pain or discomfort, no palpitations, no Hypertension, and no High Cholesterol. Pulmonary: No daytime asthma symptoms and no chronic cough. No wheezing. Gastrointestinal: No heartburn and no abdominal pain. No Indigestion, no Peptic Ulcer, no GI Stomach Bleed, no Ulcers, and no Acid Reflux. Endocrine: No hot flashes, no muscle weakness, no Diabetes, no Hypothyroid, and no Hyperthyroid. Hematologic: No easy bleeding, no tendency for easy bruising, and no Anemia. Musculoskeletal: No Arthritis. Lower back pain. No soft tissue swelling. Pain localized to one or more joints. Neurological: Dizziness. No convulsions and no numbness. Psychological: Anxiety. No emotional lability. Depression. No insomnia. Not crying for no reason. Skin: No dry skin. No Ulcers. Scars. No rash. Allergic and Immunologic: No complaint of seasonal allergic reaction. Physical Findings - Vitals taken 04/30/2024 08:37 am jm Height 75 in Weight 180 lbs Body Mass Index 22.5 kg/m2 Body Surface Area 2.1 m2 Pleasant alert and oriented x3 Tender in the midthoracic spine and lower lumbar spine He has 5/5 EHL gastrocs quadriceps tibialis anterior strength bilaterally negative straight leg raise bilaterally 2+ Achilles and patellar reflexes bilaterally Tests Outside facility x-rays of the thoracic and lumbar spine were reviewed there is a possible T8 compression fracture and possible L1 compression fracture age indeterminate Assessment Thoracic and lower back pain Counseling/Education - Tobacco non-user - Use of tobacco assessment performed Plan StartCited - Low back pain, unspecified Radiology/MRI: MRI Lumbar Spine Instructions: MRI thoracic & lumbar spine EndCited StartCited - Other Methocarbamol 750 MG tablet Take 1 tablet every 8 hrs prn pain, 30 days, 1 refills EndCited Patient was seen by myself Elie Noe PA-C. Patient will follow up thoracic spine MRI and lumbar spine MRI Note to be off work we will get these to see if these are acute fractures or not. Prescription for Robaxin Notes This dictation was done with voice recognition software and may contain errors and omissions. Care Team - Senia Sims
--- OUTSIDE RECORDS SUMMARY | 2024-10-08 07:02 | XMS_ITS | Clinical Summary ---
Author Organization [facility] , [facility] Address [address] [place] [address] Phone Care Team Providers Care Leadership Intern Name Role Phone Senia Sims Unavailable Unavailable Jose LAINEZ, Jimenez Beck Unavailable [phone] Reason for Visit and Chief Complaint The Chief Complaint is: Lumbar Compression Fracture Problems Includes: Problems addressed during this encounter and other active Problems Current Visit Onset Date Resolved Date Provider Khari salomon Status Lower Back Pain 04/30/2024 Elie Noe PA-C A ctive Last Documented On 4 8:36AM ; [facility] Plan of Treatment Patient was seen by myself Elie Noe PA-C. Patient will follow up after we get this lumbar spine MRIs we rule out a compression fracture for the thoracic spine MRIs. I think it is okay for him to get back to work mainly this seated work right now no bending and no lifting more than 10 lb but we need to get the lumbar spine MRIs there was a question of a possible compression fracture at L1 too he does not need the brace. If this lumbar spine MRIs negative then we are going to have him do some physical therapy - Last Documented On 06/10/2024 11:00AM ; [facility] Pending Tests Order Diagnosis Results Due [facility]ing [facility] - MRI MRI Lumbar Spine Low back pain, unspecified 05/14/24 Elie Noe PA-C Last Documented On 4 9:59AM ; [facility], [facility] Assessments Includes: Assessments from this encounter Findings Thoracic back pain and low back pain - Last Documented On 06/10/2024 11:00AM ; [facility], [facility] Medical Equipment - Implanted Devices Includes: Current Devices No Medical Equipment Recorded Medications Includes: Medications discussed during this encounter and other current Medications New / Renewed during this visit Elei Noe PA-C on 06/10/2024 Diclofenac Sodium 75 MG Oral Tablet Delayed Release Provider: Elie Paredes 15 day supply: 30 tablet, 0 refills Diagnosis: 2 once a day Pharmacy: Pending sale to [facility] [phone] [facility], [address] - Last Documented On 5 10:49AM By Pavel Maguire ; [facility], [facility] Current Medications (continue as prescribed) Diclofenac Sodium 75 MG Oral Tablet Delayed Release 06/10/2024 Provider: Elie Noe PA-C Diagnosis: Last Documented On 5 1:14PM By Pavel Maguire ; [facility], [facility] Amantadine HCl 100 MG Oral Tablet 06/04/2024 Provide r: NYASIA BARAHONA MD Diagnosis: Last Documented On 5 10:24AM By Pavel Maguire ; [facility], [facility] D3 High Potency 50 MCG (1999 [place]) Oral Capsule 05/28/20 Provider: Diagnosis: Last Documented On 5 10:24AM By Pavel Maguire ; [facility], [facility] busPIRone HCl 5 MG Oral Tablet 04/28/2024 Provider: Diagnosis: Last Documented On 4 8:36AM By Paola Yung ; [facility], [facility] Naproxen 500 MG Oral Tablet 04/28/2024 Provider: Diagnosis: Last Documented On 4 8:36AM By Paola Yung ; [facility], [facility] methylPREDNISolone 4 MG Oral Tablet Therapy Pack 04/25 Provider: Diagnosis: Last Documented On 4 8:36AM By Paola Yung ; [facility], [facility] Methocarbamol 750 MG Oral Tablet 04/25/2024 Provider : Diagnosis: Last Documented On 4 8:36AM By Paola Yung ; [facility], [facility] Ciprofloxacin-dexAMETHasone 0.3-0.1% Otic Suspension 1 Provider: Diagnosis: Last Documented On 4 8:36AM By Paola Yung ; [facility], [facility] Azithromycin 250 MG Oral Tablet 03/15/2024 Provider: Diagnosis: Last Documented On 4 8:36AM By Paola Yung ; [facility], [facility] Azithromycin 250 MG Oral Tablet 03/15/2024 Provider: Diagnosis: Last Documented On 5 1:14PM By Pavel Maguire ; [facility], [facility] predniSONE 20 MG Oral Tablet 02/21/2024 Provider: Nikki Paiz APRN Diagnosis: Last Documented On 4 8:36AM By Paola Yung ; [facility], [facility] Amoxicillin 500 MG Oral Capsule 02/21/2024 Provider: Nikki Paiz APRN Diagnosis: Last Documented On 4 8:36AM By Paola Yung ; [facility], [facility] Past Medications on file Methocarbamol 750 MG Oral Tablet 04/30/2024 - 06/29/19 25 Provider: Elie Noe PA-C Diagnosis: Take 1 tablet every 8 hrs prn pain Last Documented On 4 9:54AM By Paola Yung ; [facility], [facility] Medications Administered Includes: Administered Medications from this encounter No Administered Medications Recorded Vital Signs Includes: Vital Signs from this encounter Vital Name 06/10/2024 10:20A Height (in) 75 Weight (lb) 180 Body Mass Index 22.5 Body Surface Area 2.1 Pain Level 7 Note: MT Last Documented: On 06/10/2024 10:20A M ; [facility], [facility] Results Includes: Results discussed during this encounter No Results Recorded For Specified Dates History of Present Illness Includes: History of Present Illness from this encounter HPI Newton Galindo is a 44 year old male. - Symptoms catching pain better: rest, not sitting or standing too long pain worse: lifting/bending. - Allergy list reviewed - Problem list reviewed - Medication list reviewed - Patient pain level from 1-10: 5 - Yes, previous treatment. Senia Sims - - Review of medications documented Patient is here today for follow up of his thoracic spine MRIs. He was supposed to have a lumbar spine MRI also but that was not scheduled for some reason his biggest complaint still is mid back pain some low back pain. No radicular symptoms. He says he does have a history of a scoliosis in the past. He denies any bowel or bladder issues with this. He has been wearing a back placed. He has been unable to get back to work. He has tried some anti-inflammatories. Social History Description Last Updated Caffeine use 04/30/2024 Last Documented On 5 10:24AM ; [facility], [facility] No recent change in diet 04/30/2024 Last Documented On 5 10:24AM ; [facility], [facility] Not a current smoker. 04/30/2024 Last Documented On 5 10:24AM ; [facility], [facility] Not exercising regularly 04/30/2024 Last Documented On 5 10:24AM ; [facility] Not using alcohol 04/30/2024 Last Documented On 5 10:24AM ; [facility], [facility] Not using drugs 04/30/2024 Last Documented On 5 10:24AM ; [facility] Smoking Status Unknown Procedures and Surgical History Surgical History Last Updated History of Previous Fractures 04/30/2024 Last Documented On 5 10:24AM ; [facility] 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 Includes: 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 addressed during this encounter Description Last Updated History of depression 04/30/2024 Last Documented On 5 10:24AM ; [facility] History of Fractures 04/30/2024 Last Documented On 5 10:24AM ; [facility] History of Irregular Heartbeat 4 Last Documented On 5 10:24AM ; [facility] History of Sleep Apnea 04/30/2024 Last Documented On 5 10:24AM ; [facility], [facility] Family History Includes: Family History addressed during this encounter Description Last Updated No significant family history 04/30/2024 Last Documented On 5 10:24AM ; [facility] Review of Systems Includes: Review of Systems [...] Encounters Encounter Provider Location Date Check-In Time Check- Out Time Diagnosis Follow Up Elie Noe PA-C [facility] 5 10:09AM 10:57AM Insurance Includes: Active Insurance Policies Plan Name Member ID Group # Subscriber Relationship Effect isabel Dates 1 - [facility] [id number] Newton Galindo Self Clinical Notes Includes: Clinical Notes from this encounter * Progress note Date Encounter Last Documented by 06/10/2024 Follow Up Last documented on 06/10/2024; 11:00 AM, Elie Paredes; [facility], [facility] Active Problems & Conditions - Lower Back Pain Chief Complaint The Chief Complaint is: Lumbar Compression Fracture. Referred Here Referred by. History of Present Illness Newton Galindo is a 44 year old male. - Symptoms catching pain better: rest, not sitting or standing too long pain worse: lifting/bending. - Allergy list reviewed - Problem list reviewed - Medication list reviewed - Patient pain level from 1-10: 5 - Yes, previous treatment. Senia Sims - - Review of medications documented Patient is here today for follow up of his thoracic spine MRIs. He was supposed to have a lumbar spine MRI also but that was not scheduled for some reason his biggest complaint still is mid back pain some low back pain. No radicular symptoms. He says he does have a history of a scoliosis in the past. He denies any bowel or bladder issues with this. He has been wearing a back placed. He has been unable to get back to work. He has tried some anti-inflammatories. Current Medication - Amantadine HCl 100 MG Oral Tablet 11 days, 0 refills - Amoxicillin 500 MG Oral Capsule 10 days, 0 refills - Azithromycin 250 MG Oral Tablet 5 days, 0 refills - busPIRone HCl 5 MG Oral Tablet 30 days, 0 refills - Ciprofloxacin-dexAMETHasone 0.3-0.1% Otic Suspension 7 days, 0 refills - D3 High Potency 50 MCG (2000 UT) Oral Capsule 30 days, 0 refills - Methocarbamol 750 MG Oral Tablet 10 days, 0 refills - Methocarbamol 750 MG Oral Tablet Take 1 tablet every 8 hrs prn pain, 30 days, 1 refills - methylPREDNISolone 4 MG Oral Tablet [...] allergic reaction. Physical Findings - Vitals taken 06/10/2024 10:20 am MT Height 75 in Weight 180 lbs Body Mass Index 22.5 kg/m2 Body Surface Area 2.1 m2 Pain Level 7 Pleasant oriented x3 5/5 EHL gastrocs quadriceps tibialis anterior strength bilaterally Tender in the thoracic and lower lumbar spine Tests Thoracic spine MRI show no acute compression fracture there was a question that he had one at T8 on a previous x-rays. Does show degenerative changes Assessment Thoracic back pain and low back pain Previous Tests Available previous imaging studies were reviewed Available previous history reviewed Counseling/Education - Tobacco non-user - Use of tobacco assessment performed Plan StartCited - Other Diclofenac Sodium 75 MG tablet 2 once a day, 15 days, 0 refills EndCited Patient was seen by myself Elie Noe PA-C. Patient will follow up after we get this lumbar spine MRIs we rule out a compression fracture for the thoracic spine MRIs. I think it is okay for him to get back to work mainly this seated work right now no bending and no lifting more than 10 lb but we need to get the lumbar spine MRIs there was a question of a possible compression fracture at L1 too he does not need the brace. If this lumbar spine MRIs negative then we are going to have him do some physical therapy Notes This dictation was done with voice recognition software and may contain errors and omissions. Care Team - Senia Sims
--- OUTSIDE RECORDS SUMMARY | 2024-10-08 07:03 | XMS_ITS | Clinical Summary ---
Author Organization [facility] , [facility] Address [address] [place] [address] Phone Care Team Providers Care Technical Sales Manager Name Role Phone Senia Sims Unavailable Unavailable Jose LAINEZ, Jimenez Beck Unavailable [phone] Reason for Visit and Chief Complaint The Chief Complaint is: Lumbar pain Problems Includes: Problems addressed during this encounter and other active Problems Current Visit Onset Date Resolved Date Provider Khari salomon Status Lower Back Pain 04/30/2024 Elie Noe PA-C A ctive Last Documented On 4 8:36AM ; [facility] Plan of Treatment Patient was seen by myself Elie Noe PA-C. Patient will follow up 4 weeks we will have him start some physical therapy with this for the time being and then keep him on work restrictions and see him back he will not need back surgery - Last Documented On 06/28/2024 2:38PM ; [facility] Pending Tests Order Diagnosis Results Due Ordering [facility] Radiology - MRI MRI Lumbar Spine Low back pain, unspecified 05/14/24 Elie Noe PA-C Last Documented On 4 9:59AM ; [facility] Assessments Includes: Assessments from this encounter Findings Thoracolumbar back pain - Last Documented On 06/28/2024 2:38PM ; [facility] Medical Equipment - Implanted Devices Includes: Current Devices No Medical Equipment Recorded Medications Includes: Medications discussed during this encounter and other current Medications Current Medications (continue as prescribed) Diclofenac Sodium 75 MG Oral Tablet Delayed Release 06/10/2024 Provider: Elie Noe PA-C Diagnosis: Last Documented On 5 1:14PM By Pavel Maguire ; [facility], [facility] Amantadine HCl 100 MG Oral Tablet 06/04/2024 Provide r: NYASIA BARAHONA MD Diagnosis: Last Documented On 5 10:24AM By Pavel Maguire ; [facility], [facility] D3 High Potency 50 MCG (2000 UT) Oral Capsule 05/28/20 Provider: Diagnosis: Last Documented On 5 10:24AM By Pavel Maguire ; [facility], [facility] busPIRone HCl 5 MG Oral Tablet 04/28/2024 Provider: Diagnosis: Last Documented On 4 8:36AM By Paola Yung ; [facility], [facility] Naproxen 500 MG Oral Tablet 04/28/2024 Provider: Diagnosis: Last Documented On 4 8:36AM By Paola Yung ; [facility], [facility] methylPREDNISolone 4 MG Oral Tablet Therapy Pack 04/25 Provider: Diagnosis: Last Documented On 4 8:36AM By Paola Yung ; [facility], [facility] Methocarbamol 750 MG Oral Tablet 04/25/2024 Provider : Diagnosis: Last Documented On 4 8:36AM By Paola Yung ; [facility], [facility] Ciprofloxacin-dexAMETHasone 0.3-0.1% Otic Suspension 1 Provider: Diagnosis: Last Documented On 4 8:36AM By Paola Yung ; [facility], [facility] Azithromycin 250 MG Oral Tablet 03/15/2024 Provider: Diagnosis: Last Documented On 4 8:36AM By Paola Yung ; [facility] Azithromycin 250 MG Oral Tablet 03/15/2024 Provider: Diagnosis: Last Documented On 5 1:14PM By Pavel Maguire ; [facility] predniSONE 20 MG Oral Tablet 02/21/2024 Provider: Nikki Paiz APRN Diagnosis: Last Documented On 4 8:36AM By Paola Yung ; [facility], [facility] Amoxicillin 500 MG Oral Capsule 02/21/2024 Provider: Nikki Paiz APRN Diagnosis: Last Documented On 4 8:36AM By Paola Yung ; [facility] Past Medications on file Diclofenac Sodium 75 MG Oral Tablet Delayed Release 06/10/2024 - 06/25/2024 Provider: Elie Noe PA-C Diagnosis: 2 once a day Last Documented On 5 10:49AM By [facility] Methocarbamol 750 MG Oral Tablet 04/30/2024 - 06/29/19 Provider: Elie Noe PA-C Diagnosis: Take 1 tablet every 8 hrs prn pain Last Documented On 4 9:54AM By Paola Yung ; [facility] Medications Administered Includes: Administered Medications from this encounter No Administered Medications Recorded Vital Signs Includes: Vital Signs from this encounter Vital Name 06/28/2024 01:23P Height (in) 74 Weight (lb) 180 Body Mass Index 23.1 Body Surface Area 2.1 Pain Level 5 Last Documented: On 06/28/2024 1:23PM ; [facility] Results Includes: Results discussed during this encounter [...] medications documented Patient is here today for follow-up of his lumbar spine MRIs biggest complaint is some thoracolumbar back pain it is this mainly with his back nothing radiating is down his legs. We attempted to try to release him to some work with some restrictions last visit but he is still waiting that. There was concern about a possible fracture in his lower back Social History Description Last Updated Caffeine use 04/30/2024 Last Documented On 5 1:14PM ; [facility] No recent change in diet 04/30/2024 Last Documented On 5 1:14PM ; [facility] Not a current smoker. 04/30/2024 Last Documented On 5 1:14PM ; [facility] Not exercising regularly 04/30/2024 Last Documented On 5 1:14PM ; [facility] Not using alcohol 04/30/2024 Last Documented On 5 1:14PM ; [facility] Not using drugs 04/30/2024 Last Documented On 5 1:14PM ; [facility] Smoking Status Unknown Procedures and Surgical History Surgical History Last Updated History of Previous Fractures 04/30/2024 Last Documented On 5 1:14PM ; [facility] 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 Includes: 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 addressed during this encounter Description Last Updated History of depression 04/30/2024 Last Documented On 5 1:14PM ; [facility] History of Fractures 04/30/2024 Last Documented On 5 1:14PM ; [facility] History of Irregular Heartbeat 4 Last Documented On 5 1:14PM ; [facility] History of Sleep Apnea 04/30/2024 Last Documented On 5 1:14PM ; [facility] Family History Includes: Family History addressed during this encounter Description Last Updated No significant family history 04/30/2024 Last Documented On 5 1:14PM ; [facility] Review of Systems Includes: Review [...] Time Diagnosis Follow Up Elie Noe PA-C [facility] 1:06PM 1:27PM Insurance Includes: Active Insurance Policies Plan Name Member ID Group # Subscriber Relationship Effect isabel Dates 1 - [facility] [id number] Newton Galindo Self Clinical Notes Includes: Clinical Notes from this encounter * Progress note Date Encounter Last Documented by 06/28/2024 Follow Up Last documented on 06/28/2024; 2:38 PM, Elie Noe PA-C; [facility], [facility] Active Problems & Conditions - Lower Back Pain Chief Complaint The Chief Complaint is: Lumbar pain. Referred Here Referred by. History of Present [...] medications documented Patient is here today for follow-up of his lumbar spine MRIs biggest complaint is some thoracolumbar back pain it is this mainly with his back nothing radiating is down his legs. We attempted to try to release him to some work with some restrictions last visit but he is still waiting that. There was concern about a possible fracture in his lower back Current Medication - Amantadine HCl 100 MG Oral Tablet 11 days, 0 refills - Amoxicillin 500 MG Oral Capsule 10 days, 0 refills - Azithromycin 250 MG Oral Tablet 5 days, 0 refills - Azithromycin 250 MG Oral Tablet 5 days, 0 refills - busPIRone HCl 5 MG Oral Tablet 30 days, 0 refills - Ciprofloxacin-dexAMETHasone 0.3-0.1% Otic Suspension 7 days, 0 refills - D3 High Potency 50 MCG (2000 UT) Oral Capsule 30 days, 0 refills - Diclofenac Sodium 75 MG Oral Tablet Delayed Release 15 days, 0 refills - Methocarbamol 750 MG [...] allergic reaction. Physical Findings - Vitals taken 06/28/2024 01:23 pm Height 74 in Weight 180 lbs Body Mass Index 23.1 kg/m2 Body Surface Area 2.1 m2 Pain Level 5 Pleasant oriented x3 5/5 EHL gastrocs quadriceps tibialis anterior strength bilaterally Tender in the thoracic and lower lumbar spine Tests Thoracic spine MRI show no acute compression fracture there was a question that he had one at T8 on a previous x-rays. Does show degenerative changes MRI of the lumbar spine showed no acute fractures shows some degenerative changes with his back Assessment Thoracolumbar back pain Previous Tests Available previous imaging studies were reviewed Available previous history reviewed Counseling/Education - Tobacco non-user - Use of tobacco assessment performed Plan Patient was seen by myself Elie Noe PA-C. Patient will follow up 4 weeks we will have him start some physical therapy with this for the time being and then keep him on work restrictions and see him back he will not need back surgery Notes This dictation was done with voice recognition software and may contain errors and omissions. Care Team - Senia Sims
--- OUTSIDE RECORDS SUMMARY | 2024-10-08 07:03 | XMS_ITS ---
Author Organization [facility] , [facility] Address [address] [place] [address] Phone Care Team Providers Care Health And Safety Specialist Name Role Phone Senia Sims Unavailable Unavailable Jose LAINEZ, Jimenez Beck Unavailable [phone] Problems Includes: Active, inactive, and resolved Problems All Visits Onset Date Resolved Date Provider Condition S tatus Lower Back Pain 04/30/2024 Elie Noe PA-C A ctive Last Documented On 4 8:36AM ; [facility], [facility] Plan of Treatment Pending Tests Order Diagnosis Results Due Ordering P rovider Radiology - MRI MRI Lumbar Spine Low back pain, unspecified 05/14/24 Elie Noe PA-C Last Documented On 4 9:59AM ; [facility], [facility] Assessments Includes: Assessments for all patient encounters No Assessments Recorded Medical Equipment - Implanted Devices Includes: Current and historical Devices No Medical Equipment Recorded Medications Includes: Current and historical Medications Current Medications (continue as prescribed) Diclofenac Sodium 75 MG Oral Tablet Delayed Release 06/10/2024 Provider: Elie Noe PA-C Diagnosis: Last Documented On 5 1:14PM By Pavel Maguire ; [facility], [facility] Amantadine HCl 100 MG Oral Tablet 06/04/2024 Provide r: NYASIA BARAHONA MD Diagnosis: Last Documented On 5 10:24AM By Pavel Maguire ; [facility], [facility] D3 High Potency 50 MCG (1999) Oral Capsule 05/28/20 Provider: Diagnosis: Last Documented On 5 10:24AM By Pavel Maguire ; [facility], [facility] busPIRone HCl 5 MG Oral Tablet 04/28/2024 Provider: Diagnosis: Last Documented On 4 8:36AM By Paola Yung ; [facility], [facility] Naproxen 500 MG Oral Tablet 04/28/2024 Provider: Diagnosis: Last Documented On 4 8:36AM By Paola Yung ; [facility], [facility] methylPREDNISolone 4 MG Oral Tablet Therapy Pack 04/25 Provider: Diagnosis: Last Documented On 4 8:36AM By Paola Yung ; [facility], [facility] Methocarbamol 750 MG Oral Tablet 04/25/2024 Provider : Diagnosis: Last Documented On 4 8:36AM By Paola Yung ; [facility], [facility] Ciprofloxacin-dexAMETHasone 0.3-0.1% Otic Suspension 1 Provider: Diagnosis: Last Documented On 4 8:36AM By Paola Yung ; [facility], [facility] Azithromycin 250 MG Oral Tablet 03/15/2024 Provider: Diagnosis: Last Documented On 4 8:36AM By Paola Yung ; [facility], [facility] Azithromycin 250 MG Oral Tablet 03/15/2024 Provider: Diagnosis: Last Documented On 5 1:14PM By Pavel Maguire ; [facility], [facility] predniSONE 20 MG Oral Tablet 02/21/2024 Provider: Nikki Paiz APRN Diagnosis: Last Documented On 4 8:36AM By Paola Yung ; [facility], [facility] Amoxicillin 500 MG Oral Capsule 02/21/2024 Provider: Nikki Paiz APRN Diagnosis: Last Documented On 4 8:36AM By Paola Yung ; [facility], [facility] Past Medications on file Diclofenac Sodium 75 MG Oral Tablet Delayed Release 06/10/2024 - 06/25/2024 Provider: Elie Noe PA-C Diagnosis: 2 once a day Last Documented On 5 10:49AM By Pavel Maguire ; [facility], [facility] Methocarbamol 750 MG Oral Tablet 04/30/2024 - 06/29/19 Provider: Elie Noe PA-C Diagnosis: Take 1 tablet every 8 hrs prn pain Last Documented On 4 9:54AM By Paola Yung ; [facility], [facility] Medications Administered Includes: Administered Medications in patient's chart No Administered Medications Recorded Vital Signs Includes: Vital Signs from 10/09/2023 through 10/08/2024 Vital Name 06/28/2024 01:23P 06/10/2024 10:20A 04/30 08:37A Height (in) 74 75 75 Weight (lb) 180 180 180 Body Mass Index 23.1 22.5 22.5 Body Surface Area 2.1 2.1 2.1 Pain Level 5 7 Note: [facility] Last Documented: On 06/28/2024 1:23PM ; [facility] On 06/10/2024 10:20AM ; [facility], [facility] On 04/30/2024 8:38AM ; [facility], [facility] Results Includes: Results from 10/09/2023 through 10/08/2024 No Results Recorded For Specified Dates History of Present Illness History of Present Illness not supported for this document type No History of Present Illness Recorded Social History Description Last Updated Caffeine use 04/30/2024 Last Documented On 4 8:38AM ; [facility] No recent change in diet 04/30/2024 Last Documented On 4 8:38AM ; [facility], [facility] Not a current smoker. 04/30/2024 Last Documented On 4 8:38AM ; [facility], [facility] Not exercising regularly 04/30/2024 Last Documented On 4 8:38AM ; [facility], [facility] Not using alcohol 04/30/2024 Last Documented On 4 8:38AM ; [facility], [facility] Not using drugs 04/30/2024 Last Documented On 4 8:38AM ; [facility], [facility] Smoking Status Unknown Procedures and Surgical History Surgical History Last Updated History of Previous Fractures 04/30/2024 Last Documented On 4 8:38AM ; [facility], [facility] 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 Includes: 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 in patient's chart Description Last Updated History of depression 04/30/2024 Last Documented On 4 8:38AM ; [facility] History of Fractures 04/30/2024 Last Documented On 4 8:38AM ; [facility] History of Irregular Heartbeat 4 Last Documented On 4 8:38AM ; [facility] History of Sleep Apnea 04/30/2024 Last Documented On 4 8:38AM ; [facility] Family History Includes: Family History in patient's chart Description Last Updated No significant family history 04/30/2024 Last Documented On 4 8:38AM ; [facility] Review of Systems Review of Systems not supported for this document type No Review of Systems Recorded Mental Status Description Anxiety Functional Status No Functional Status Recorded Physical Exam Physical Exam not supported for this document type No Physical Exam Recorded Allergies Includes: Active, inactive, and resolved Allergies No Known Allergies Encounters Includes: Encounters from 10/09/2023 through 10/08/2024 Encounter Provider Location Date Check-In Time Check-Out Time Diagnosis Follow Up Elie Noe PA-C [facility] 06/28/19 25 1:06PM 1:27PM Follow Up Elie Noe PA-C [facility] 06/10/19 25 10:09AM 10:57AM Physician Specified Elie Noe PA-C [facility] 04/30/20 24 8:32AM 9:23AM Insurance Includes: Active Insurance Policies Plan Name Member ID Group # Subscriber Relationship Effect isabel Dates 1 - [facility] [id number] Newton Galindo Self Clinical Notes Includes: Signed Clinical Notes starting from 05/23/2022 * Progress note Date Encounter Last Documented by 06/28/2024 Follow Up Last documented on 06/28/2024; 2:38 PM, Elie Noe PA-C; [facility] Active Problems & Conditions - Lower [...] and omissions. Care Team - Senia Sims * Progress note Date Encounter Last Documented by 06/10/2024 Follow Up Last documented on 06/10/2024; 11:00 AM, Elie Paredes; [facility], [facility] Active Problems & Conditions - Lower Back [...] 1-10: 5 - Yes, previous treatment. Senia Bethany - - Review of medications documented Patient [...] and omissions. Care Team - Senia Sims * Progress note Date Encounter Last Documented by 04/30/2024 Physician Specified Russel rose on 06/08/2024; 8:38 AM, Elie Noe PA-C; [facility], [facility] Active Problems & Conditions - Lower Back [...]
[2024-10-08 07:47] LABS: Basophils # 0.1 K/mm3 (0-0.2); Basophils % 1.5 % (0.1-2.0); Eosinophils # 0.3 Kmm3 (0.0-0.4); Eosinophils % 5.2 % (0.1-12.0); Hematocrit 43.6 % (42.0-52.0); Hemoglobin 14.9 g/dL (14.1-18.0); Lymphocytes # 1.7 K/mm3 (0.7-4.5); Lymphocytes % 36.4 % (10-50); Mean Corpuscular HGB Conc 34.2 g/dL (31.8-35.4); Mean Corpuscular Hemoglobin 31.4 pg (27.0-31.2); Mean Corpuscular Volume 91.8 fl (80-94); Mean Platelet Volume 10.3 fl (7.4-10.4); Monocytes # 0.4 K/mm3 (0.1-1.0); Monocytes % 7.9 % (1.7-9.3); Neutrophils # 2.3 K/mm3 (1.8-7.8); Neutrophils % 48.8 % (37.0-80.0); Nucleated Red Blood Cells # 0 10^3/uL; Nucleated Red Blood Cells % 0 %; Platelet Count 211 K/mm3 (142-424); Red Blood Count 4.75 M/mm3 (4.60-6.20); Red Cell Distribution Width-SD 40.4 fL; White Blood Count 4.8 K/mm3 (4.8-10.8)
[2024-10-08 08:37] LABS: T4 (Thyroxine) 8.6 ug/dl (5.53-11.0); Triiodothryronine (T3) Uptake 35 % (23.5-40.5)
[2024-10-08 08:51] LABS: Thyroid Stimulating Hormone 0.89 uIU/mL (0.465-4.68)
[2024-10-09 08:24] LABS: Thyroid Peroxidase Antibodies 10 IU/mL (0-34)
== END 2024-10-08 23:59 | disposition home or self-care (01) ==
LOC: LAB 07:01
DX: F41.9 Anxiety disorder, unspecified (principal); F39 Unspecified mood [affective] disorder
CPT/HCPCS: 36415; 84436; 84443; 84479; 85025; 86376